=== PATIENT | male | born 1940 | race Caucasian/White ===

== ENCOUNTER → 2018-07-23 11:10 | Outpatient (CLI) | payer OTHER, MEDICARE, SELFPAY ==
[2018-07-23 12:54] LABS: Absolute Lymphocyte Count 1.74 X10^3/ul (0.83-4.51); Absolute Neutrophil Count 5.2 X10^3/uL (2.0-7.7); Basophil# 0.03 X10^3/uL; Basophil% 0.4 % (0-1); Eosinophil# 0.19 X10^3/uL; Eosinophils% 2.5 % (0-5); Hematocrit 45.1 % (40-54); Hemoglobin 14.9 g/dl (13.0-16.5); Lymphocyte # 1.74 X10^3/ul (4.0); Lymphocyte % 22.6 % (19-41); Mean Corpuscular Volume 90.7 fL (80-94); Mean Platelet Vol. 10.2 fl (6.2-12.0); Monocyte# 0.58 X10^3/uL; Monocyte% 7.5 % (0-10); Neutrophil # 5.15 X10^3/uL (2.7-7.7); Neutrophil % 66.9 % (47-70); Platelet Count 178 K/mm3 (150-450); RBC Distribution Width CV 13.5 % (11.6-14.6); RBC Distribution Width SD 44.5 fl (35.1-43.9); Red Blood Count 4.97 M/mm3 (4.6-6.2); White Blood Count 7.7 K/mm3 (4.4-11.0)
[2018-07-23 12:55] LABS: POSITIVE COUNT NO; POSITIVE DIFFERENTIAL NO; POSITIVE MORPHOLOGY NO
[2018-07-23 13:13] LABS: Vitamin D,25 Hydroxy 39.2 ng/mL (29.95-100.01)
[2018-07-23 13:15] LABS: ALB/GLOB Ratio 1.2 RATIO (0.9-2.4); AST(SGOT) 32 U/L (15-37); Alanine Aminotransfer ALT/SGPT 56 U/L (16-61); Albumin, Serum 4.1 g/dL (3.2-5.0); Alkaline Phosphatase 87 U/L (45-117); Anion Gap 7 (5-15); BUN 20 mg/dL (7-18); BUN/Creat Ratio 21.5 RATIO (10-20); Calcium,Total 9.4 mg/dL (8.5-10.1); Chloride 104 mmol/L (98-107); Creatinine, Serum 0.93 mg/dL (0.70-1.30); EST Glomerular Filtration Rate 84 mL/min (>60); Est Glom Filt Rate - Afr Amer 101 mL/min (>60); Globulin 3.4 g/dL (2.2-4.2); Glucose 89 mg/dL (74-106); Potassium 4.2 mmol/L (3.5-5.1); Protein, Total 7.5 g/dL (6.4-8.2); Sodium Level 139 mmol/L (136-145); Thyroid Stim Hormone (TSH) 1.06 uIU/mL (0.358-3.74)
== END ==
PROVIDERS: Visit Provider Family Medicine Geriatric Medicine
DX: Z00.00 Encounter for general adult medical examination without abnormal findings (principal); E55.9 Vitamin D deficiency, unspecified
CPT/HCPCS: 36415; 80053; 82306; 84443; 85025

== ENCOUNTER → 2018-10-02 16:46 | Outpatient (CLI) | payer MEDICARE, SELFPAY ==
--- NOTE | 2018-10-02 16:59 | CT_ITS ---
STUDY: CT BRAIN WITHOUT CONTRAST REASON FOR EXAM: Male, 77 years old. Dizziness on and off x2 weeks RADIATION DOSAGE (If Supplied By Facility): CTDIvol = ( 44.99 ) mGy, DLP = ( 846.73 ) mGycm TECHNIQUE: Transaxial CT imaging of the brain was performed without administration of intravenous contrast material. Individualized dose optimization techniques were used for this CT. COMPARISON: None. FINDINGS: Normal soft tissue structures. Normal calvarium. There is moderate cerebral atrophy with widening of the extra-axial spaces and ventricular dilatation. There are areas of decreased attenuation within the white matter tracts of the supratentorial brain, consistent with microvascular disease changes. Normal basal ganglia and thalami. Normal brainstem. Normal cerebellum. There is no intracranial hemorrhage. There are no findings of an acute ischemic infarction. There is mucosal thickening of multiple ethmoid air cells bilaterally. CT/Brain/Head without Contrast IMPRESSION: Chronic involutional changes of the brain. Chronic ethmoid sinusitis. Electronically Signed: Jovany Lyons MD at 17:26 EDT , Service support ,
[2018-10-02 17:28] LABS: Absolute Lymphocyte Count 1.56 X10^3/ul (0.83-4.51); Basophil# 0.03 X10^3/uL; Basophil% 0.4 % (0-1); Eosinophil# 0.11 X10^3/uL; Eosinophils% 1.4 % (0-5); Hematocrit 43.7 % (40-54); Lymphocyte # 1.56 X10^3/ul (4.0); Lymphocyte % 19.4 % (19-41); Mean Corpuscular Hgb 29.7 pg (27.0-32.0); Mean Corpuscular Volume 92.8 fL (80-94); Mean Platelet Vol. 10.2 fl (6.2-12.0); Monocyte# 0.34 X10^3/uL; Monocyte% 4.2 % (0-10); Neutrophil % 74.5 % (47-70); Platelet Count 209 K/mm3 (150-450); RBC Distribution Width CV 13.3 % (11.6-14.6); RBC Distribution Width SD 45.3 fl (35.1-43.9); Red Blood Count 4.71 M/mm3 (4.6-6.2); White Blood Count 8.1 K/mm3 (4.4-11.0)
[2018-10-02 17:31] LABS: POSITIVE COUNT NO; POSITIVE DIFFERENTIAL NO; POSITIVE MORPHOLOGY NO
[2018-10-02 17:38] LABS: Anion Gap 5 (5-15); BUN 19 mg/dL (7-18); Calcium,Total 9.7 mg/dL (8.5-10.1); Chloride 105 mmol/L (98-107); Creatinine, Serum 0.95 mg/dL (0.70-1.30); EST Glomerular Filtration Rate 81 mL/min (>60); Est Glom Filt Rate - Afr Amer 98 mL/min (>60); Glucose 104 mg/dL (74-106); Potassium 4.5 mmol/L (3.5-5.1); Sodium Level 140 mmol/L (136-145)
== END ==
PROVIDERS: Family Provider Family Medicine Geriatric Medicine; PCP Family Medicine Geriatric Medicine; Referring Provider Family Medicine Geriatric Medicine; Visit Provider Family Medicine Geriatric Medicine
DX: R42 Dizziness and giddiness (principal)
CPT/HCPCS: 36415; 70450; 80048; 85025; 87086

== ENCOUNTER → 2019-02-03 | Outpatient (CLI) | payer MEDICARE, SELFPAY ==
[2016-12-31 20:47] VITALS: BMI 34.2
[2019-02-03 12:48] LABS: Absolute Neutrophil Count 4.1 X10^3/uL (2.0-7.7); Basophil# 0.04 X10^3/uL; Basophil% 0.7 % (0-1); Eosinophil# 0.13 X10^3/uL; Eosinophils% 2.2 % (0-5); Hematocrit 44.7 % (40-54); Hemoglobin 15.1 g/dL (13.0-16.5); Lymphocyte % 21.7 % (19-41); Mean Corp Hgb Conc 33.8 g/dL (32-36); Mean Corpuscular Hgb 31.3 pg (27.0-32.0); Mean Corpuscular Volume 92.5 fL (80-94); Mean Platelet Vol. 10.6 fl (6.2-12.0); Monocyte# 0.41 X10^3/uL; Monocyte% 6.8 % (0-10); NRBC Flagged by Analyzer 0 % (0-5); Neutrophil # 4.08 X10^3/uL (2.7-7.7); Neutrophil % 68.1 % (47-70); Platelet Count 169 K/mm3 (150-450); RBC Distribution Width CV 13.2 % (11.6-14.6); Red Blood Count 4.83 M/mm3 (4.6-6.2)
[2019-02-03 13:09] LABS: Vitamin D,25 Hydroxy 46.4 ng/mL (29.95-100.01)
[2019-02-03 13:27] LABS: ALB/GLOB Ratio 1.2 RATIO (0.9-2.4); AST(SGOT) 76 U/L (15-37); Alanine Aminotransfer ALT/SGPT 81 U/L (16-61); Albumin, Serum 3.9 g/dL (3.2-5.0); Alkaline Phosphatase 68 U/L (45-117); Anion Gap 6 (5-15); BUN 22 mg/dL (7-18); BUN/Creat Ratio 24.4 RATIO (10-20); Calcium,Total 9.4 mg/dL (8.5-10.1); Chloride 105 mmol/L (98-107); EST Glomerular Filtration Rate 86 mL/min (>60); Est Glom Filt Rate - Afr Amer 105 mL/min (>60); Globulin 3.2 g/dL (2.2-4.2); Glucose 100 mg/dL (74-106); Potassium 4.1 mmol/L (3.5-5.1); Protein, Total 7.1 g/dL (6.4-8.2); Sodium Level 140 mmol/L (136-145); Thyroid Stim Hormone (TSH) 0.73 uIU/mL (0.358-3.74)
== END | disposition home or self-care (01) ==
LOC: POLAB3 09:10
PROVIDERS: Family Provider Family Medicine Geriatric Medicine; PCP Family Medicine Geriatric Medicine; Visit Provider Family Medicine Geriatric Medicine
DX: E55.9 Vitamin D deficiency, unspecified (principal); R53.83 Other fatigue
CPT/HCPCS: 36415; 80053; 82306; 84443; 85025

== ENCOUNTER → 2019-07-28 | Outpatient (CLI) | payer MEDICARE, SELFPAY ==
[2019-07-28 14:04] LABS: Absolute Lymphocyte Count 1.69 X10^3/uL (0.83-4.51); Absolute Neutrophil Count 3.6 X10^3/uL (2.0-7.7); Basophil# 0.05 X10^3/uL; Basophil% 0.8 % (0-1); Eosinophil# 0.22 X10^3/uL; Eosinophils% 3.6 % (0-5); Hematocrit 44.6 % (40-54); Hemoglobin 14.6 g/dL (13.0-16.5); Lymphocyte # 1.69 X10^3/ul (4.0); Lymphocyte % 27.5 % (19-41); Mean Corp Hgb Conc 32.7 g/dL (32-36); Mean Corpuscular Hgb 30.4 pg (27.0-32.0); Mean Corpuscular Volume 92.9 fL (80-94); Mean Platelet Vol. 10.8 fl (6.2-12.0); Monocyte# 0.57 X10^3/uL; Monocyte% 9.3 % (0-10); NRBC Flagged by Analyzer 0 % (0-5); Neutrophil # 3.59 X10^3/uL (2.7-7.7); Neutrophil % 58.5 % (47-70); Platelet Count 178 K/mm3 (150-450); RBC Distribution Width CV 12.9 % (11.6-14.6); RBC Distribution Width SD 44.3 fl (35.1-43.9); White Blood Count 6.1 K/mm3 (4.4-11.0)
[2019-07-28 14:27] LABS: Vitamin D,25 Hydroxy 35.1 ng/mL (29.95-100.01)
[2019-07-28 14:30] LABS: ALB/GLOB Ratio 1.1 RATIO (0.9-2.4); AST(SGOT) 68 U/L (15-37); Alanine Aminotransfer ALT/SGPT 98 U/L (16-61); Albumin, Serum 3.8 g/dL (3.2-5.0); Alkaline Phosphatase 78 U/L (45-117); Anion Gap 2 (5-15); BUN 22 mg/dL (7-18); BUN/Creat Ratio 21.4 RATIO (10-20); Chloride 107 mmol/L (98-107); Creatinine, Serum 1.03 mg/dL (0.70-1.30); EST Glomerular Filtration Rate 74 mL/min (>60); Est Glom Filt Rate - Afr Amer 89 mL/min (>60); Globulin 3.5 g/dL (2.2-4.2); Glucose 92 mg/dL (74-106); Potassium 4.4 mmol/L (3.5-5.1); Protein, Total 7.3 g/dL (6.4-8.2); Sodium Level 139 mmol/L (136-145); Thyroid Stim Hormone (TSH) 1.84 uIU/mL (0.358-3.74)
== END | disposition home or self-care (01) ==
PROVIDERS: Family Provider Family Medicine Geriatric Medicine; PCP Family Medicine Geriatric Medicine; Visit Provider Family Medicine Geriatric Medicine
DX: E55.9 Vitamin D deficiency, unspecified (principal); R53.83 Other fatigue
CPT/HCPCS: 36415; 80053; 82306; 84443; 85025

== ENCOUNTER → 2019-08-12 14:06 | Outpatient (CLI) | payer MEDICARE, SELFPAY ==
[2016-12-31 20:47] VITALS: BMI 34.2
[2019-08-12 18:12] LABS: ALB/GLOB Ratio 0.9 RATIO (0.9-2.4); AST(SGOT) 30 U/L (15-37); Alanine Aminotransfer ALT/SGPT 43 U/L (16-61); Albumin, Serum 3.6 g/dL (3.2-5.0); Alkaline Phosphatase 77 U/L (45-117); Anion Gap 4 (5-15); BUN 17 mg/dL (7-18); BUN/Creat Ratio 15.5 RATIO (10-20); Calcium,Total 9.4 mg/dL (8.5-10.1); Chloride 105 mmol/L (98-107); EST Glomerular Filtration Rate 69 mL/min (>60); Est Glom Filt Rate - Afr Amer 83 mL/min (>60); Globulin 3.8 g/dL (2.2-4.2); Glucose 148 mg/dL (74-106); Potassium 4.1 mmol/L (3.5-5.1); Protein, Total 7.4 g/dL (6.4-8.2); Sodium Level 138 mmol/L (136-145)
== END ==
PROVIDERS: Family Provider Family Medicine Geriatric Medicine; PCP Family Medicine Geriatric Medicine; Visit Provider Family Medicine Geriatric Medicine
DX: K76.9 Liver disease, unspecified (principal)
CPT/HCPCS: 36415; 80053

== ENCOUNTER → 2019-08-27 11:08 | Outpatient (CLI) | payer MEDICARE, SELFPAY ==
[2016-12-31 20:47] VITALS: BMI 34.2
[2019-08-27 12:37] LABS: AST(SGOT) 56 U/L (15-37); Alanine Aminotransfer ALT/SGPT 99 U/L (16-61); Albumin, Serum 3.6 g/dL (3.2-5.0); Alkaline Phosphatase 84 U/L (45-117); Anion Gap 2 (5-15); BUN 24 mg/dL (7-18); BUN/Creat Ratio 24.4 RATIO (10-20); Chloride 107 mmol/L (98-107); Creatinine, Serum 0.98 mg/dL (0.70-1.30); EST Glomerular Filtration Rate 78 mL/min (>60); Est Glom Filt Rate - Afr Amer 94 mL/min (>60); Globulin 3.7 g/dL (2.2-4.2); Glucose 97 mg/dL (74-106); Potassium 4.4 mmol/L (3.5-5.1); Protein, Total 7.3 g/dL (6.4-8.2); Sodium Level 140 mmol/L (136-145)
== END ==
PROVIDERS: PCP Family Medicine Geriatric Medicine; Visit Provider Family Medicine Geriatric Medicine
DX: K76.9 Liver disease, unspecified (principal)
CPT/HCPCS: 36415; 80053

== ENCOUNTER → 2019-10-01 13:55 | Outpatient (CLI) | payer MEDICARE, SELFPAY ==
[2016-12-31 20:47] VITALS: BMI 34.2
[2019-10-01 16:54] LABS: ALB/GLOB Ratio 1.3 RATIO (0.9-2.4); AST(SGOT) 47 U/L (15-37); Alanine Aminotransfer ALT/SGPT 61 U/L (16-61); Albumin, Serum 3.9 g/dL (3.2-5.0); Alkaline Phosphatase 72 U/L (45-117); Anion Gap 7 (5-15); BUN 18 mg/dL (7-18); BUN/Creat Ratio 18.6 RATIO (10-20); Calcium,Total 9.5 mg/dL (8.5-10.1); Chloride 106 mmol/L (98-107); Creatinine, Serum 0.97 mg/dL (0.70-1.30); EST Glomerular Filtration Rate 79 mL/min (>60); Est Glom Filt Rate - Afr Amer 96 mL/min (>60); Globulin 3.1 g/dL (2.2-4.2); Glucose 109 mg/dL (74-106); Potassium 3.6 mmol/L (3.5-5.1); Sodium Level 140 mmol/L (136-145)
== END ==
PROVIDERS: PCP Family Medicine Geriatric Medicine; Visit Provider Family Medicine Geriatric Medicine
DX: R74.8 Abnormal levels of other serum enzymes (principal)
CPT/HCPCS: 36415; 80053

== ENCOUNTER → 2019-10-12 10:30 | Outpatient (CLI) | payer MEDICARE, SELFPAY ==
[2016-12-31 20:47] VITALS: BMI 34.2
[2019-10-12 15:05] LABS: ALB/GLOB Ratio 1.2 RATIO (0.9-2.4); AST(SGOT) 51 U/L (15-37); Alanine Aminotransfer ALT/SGPT 84 U/L (16-61); Albumin, Serum 3.9 g/dL (3.2-5.0); Alkaline Phosphatase 93 U/L (45-117); Anion Gap 3 (5-15); BUN 14 mg/dL (7-18); BUN/Creat Ratio 15.5 RATIO (10-20); Calcium,Total 9.5 mg/dL (8.5-10.1); Chloride 106 mmol/L (98-107); EST Glomerular Filtration Rate 86 mL/min (>60); Est Glom Filt Rate - Afr Amer 104 mL/min (>60); Globulin 3.2 g/dL (2.2-4.2); Glucose 134 mg/dL (74-106); Potassium 4.2 mmol/L (3.5-5.1); Protein, Total 7.1 g/dL (6.4-8.2); Sodium Level 140 mmol/L (136-145)
== END ==
PROVIDERS: PCP Family Medicine Geriatric Medicine; Visit Provider Family Medicine Geriatric Medicine
DX: R74.8 Abnormal levels of other serum enzymes (principal)
CPT/HCPCS: 36415; 80053

== ENCOUNTER → 2019-10-21 08:07 | Outpatient (CLI) | payer MEDICARE, SELFPAY ==
--- NOTE | 2019-10-21 08:26 | US_ITS ---
STUDY: ABDOMINAL ULTRASOUND - RIGHT UPPER QUADRANT REASON FOR VISIT: Male, 78 years old ABN LIVER ENZ TECHNIQUE: Ultrasound evaluation of the right upper quadrant was performed with real-time and static landry-scale imaging. TECHNICAL QUALITY: Limited. Examination limited by bowel gas. COMPARISON: None. FINDINGS: Liver: The liver measures 16.8 cm. There is increased echogenicity consistent with fatty infiltration. The bile ducts are within normal limits. There is hepatic color flow. The direction of portal flow is hepatopetal. There is no demonstrated mass lesion. Gallbladder: Normal distended gallbladder. The gallbladder wall measures 2.7 mm. There is a negative sonographic Aleman''s sign. There is no pericholecystic fluid. There are no gallstones. Focal ringdown artifact is seen along the anterior wall of the gallbladder. This may represent a focus of adenomyomatosis. Common Bile Duct (C.B.D.): The common bile duct measures 3.2 mm. Pancreas: Normal size of the head, body and tail of the pancreas. There is increased echogenicity of the pancreas. There is no demonstrated pancreatic mass or cyst. Right Kidney: Normal size of the right kidney. The right kidney measures 10.5 cm x 5.4 cm x 4.9 cm. Normal renal cortex. The right cortex measures 2.1 cm. There is no demonstrated renal mass or cyst. There is no right hydronephrosis. US/Liver IMPRESSION: Fatty infiltration of the liver. Possible focus of adenomyomatosis along the anterior wall of the gallbladder. Electronically Signed: Reji Alanis, at 12:16 EDT , Service support ,
== END ==
PROVIDERS: PCP Family Medicine Geriatric Medicine; Referring Provider Family Medicine Geriatric Medicine; Visit Provider Family Medicine Geriatric Medicine
DX: R74.8 Abnormal levels of other serum enzymes (principal)
CPT/HCPCS: 76705

== ENCOUNTER → 2020-02-03 09:02 | Outpatient (CLI) | payer MEDICARE, SELFPAY ==
[2016-12-31 20:47] VITALS: BMI 34.2
[2020-02-03 12:07] LABS: Absolute Lymphocyte Count 1.36 X10^3/uL (0.83-4.51); Absolute Neutrophil Count 3.6 X10^3/uL (2.0-7.7); Basophil# 0.04 X10^3/uL; Basophil% 0.7 % (0-1); Eosinophil# 0.13 X10^3/uL; Eosinophils% 2.3 % (0-5); Hematocrit 44.5 % (40-54); Hemoglobin 14.6 g/dL (13.0-16.5); Lymphocyte # 1.36 X10^3/ul (4.0); Lymphocyte % 23.9 % (19-41); Mean Corp Hgb Conc 32.8 g/dL (32-36); Mean Corpuscular Hgb 31.3 pg (27.0-32.0); Mean Corpuscular Volume 95.3 fL (80-94); Mean Platelet Vol. 11.1 fl (6.2-12.0); Monocyte% 8.8 % (0-10); NRBC Flagged by Analyzer 0 % (0-5); Neutrophil # 3.64 X10^3/uL (2.7-7.7); Neutrophil % 64.1 % (47-70); Platelet Count 181 K/mm3 (150-450); RBC Distribution Width SD 44.8 fl (35.1-43.9); Red Blood Count 4.67 M/mm3 (4.6-6.2); White Blood Count 5.7 K/mm3 (4.4-11.0)
[2020-02-03 12:20] LABS: Vitamin D,25 Hydroxy 57.3 ng/mL
[2020-02-03 12:37] LABS: ALB/GLOB Ratio 1.1 RATIO (0.9-2.4); AST(SGOT) 80 U/L (15-37); Alanine Aminotransfer ALT/SGPT 119 U/L (16-61); Albumin, Serum 3.7 g/dL (3.2-5.0); Alkaline Phosphatase 78 U/L (45-117); Anion Gap 4 (5-15); BUN 19 mg/dL (7-18); BUN/Creat Ratio 21.5 RATIO (10-20); Calcium,Total 9.4 mg/dL (8.5-10.1); Chloride 104 mmol/L (98-107); Creatinine, Serum 0.88 mg/dL (0.70-1.30); EST Glomerular Filtration Rate 88 mL/min (>60); Est Glom Filt Rate - Afr Amer 107 mL/min (>60); Globulin 3.5 g/dL (2.2-4.2); Glucose 108 mg/dL (74-106); Potassium 4.9 mmol/L (3.5-5.1); Protein, Total 7.2 g/dL (6.4-8.2); Sodium Level 138 mmol/L (136-145); Thyroid Stim Hormone (TSH) 0.89 uIU/mL (0.358-3.74)
== END ==
PROVIDERS: PCP Family Medicine Geriatric Medicine; Visit Provider Family Medicine Geriatric Medicine
DX: E55.9 Vitamin D deficiency, unspecified (principal); R53.83 Other fatigue
CPT/HCPCS: 36415; 80053; 82306; 84443; 85025

== ENCOUNTER → 2020-06-28 07:41 | Outpatient (CLI) | payer MEDICARE, SELFPAY ==
--- NOTE | 2020-06-28 07:43 | CT_ITS ---
STUDY: CT MAXILLOFACIAL SINUSES REASON FOR EXAM: Male, 79 years old. Sinusitis, left maxillary pressure, drainage, frequent infections. No prior surgery. [employer] navigation protocol. RADIATION DOSAGE (If Supplied By Facility): CTDIvol = ( 33.06 ) mGy, DLP = ( 842.11 ) mGycm TECHNIQUE: The patient was scanned in a multi detector CT scanner. High resolution axial imaging was performed without the administration of intravenous contrast material. Sagittal and coronal images were reconstructed. Individualized dose optimization techniques were used for this CT. COMPARISON: None. FINDINGS: FRONTAL SINUSES: Normal aeration, without mucosal inflammatory disease. ETHMOIDAL SINUSES: Mild degree of mucosal thickening of the ethmoid sinuses bilaterally. Slightly worse on the left side. MAXILLARY SINUSES: Normal aeration, without mucosal inflammatory disease. SPHENOIDAL SINUSES: Normal aeration, without mucosal inflammatory disease. There is patency of the bilateral maxillary infundibuli with normal uncinate processes, ethmoid bullae, and hiatus semilunaris. Normal bilateral middle turbinates. Normal bilateral inferior turbinates. Normal midline nasal septum. There is patency of the bilateral nasal airways. The visualized osseous structures are normal. The visualized bilateral orbital contents are normal. CT/Sinus/Facial Bone IMPRESSION: Mild degree of mucosal thickening of the ethmoid sinuses bilaterally slightly worse on the left side. Electronically Signed: Reji Alanis, at 8:24 EST , Service support ,
== END ==
PROVIDERS: PCP Family Medicine Geriatric Medicine; Referring Provider Otolaryngology; Visit Provider Otolaryngology
DX: J32.9 Chronic sinusitis, unspecified (principal)
CPT/HCPCS: 70486

== ENCOUNTER → 2020-07-07 16:55 | Outpatient (CLI) | payer MEDICARE, SELFPAY ==
[2016-12-31 20:47] VITALS: BMI 34.2
[2020-07-07 17:29] LABS: Absolute Lymphocyte Count 1.56 X10^3/uL (0.83-4.51); Absolute Neutrophil Count 4.1 X10^3/uL (2.0-7.7); Basophil# 0.04 X10^3/uL; Basophil% 0.6 % (0-1); Eosinophil# 0.17 X10^3/uL; Eosinophils% 2.6 % (0-5); Hematocrit 43.9 % (40-54); Hemoglobin 14.6 g/dL (13.0-16.5); Lymphocyte # 1.56 X10^3/ul (4.0); Lymphocyte % 24.1 % (19-41); Mean Corp Hgb Conc 33.3 g/dL (32-36); Mean Corpuscular Hgb 30.7 pg (27.0-32.0); Mean Corpuscular Volume 92.2 fL (80-94); Mean Platelet Vol. 10.3 fl (6.2-12.0); Monocyte# 0.58 X10^3/uL; NRBC Flagged by Analyzer 0 % (0-5); Neutrophil # 4.09 X10^3/uL (2.7-7.7); Neutrophil % 63.2 % (47-70); Platelet Count 192 K/mm3 (150-450); RBC Distribution Width CV 12.7 % (11.6-14.6); RBC Distribution Width SD 43.2 fl (35.1-43.9); Red Blood Count 4.76 M/mm3 (4.6-6.2); White Blood Count 6.5 K/mm3 (4.4-11.0)
[2020-07-07 17:31] LABS: Prothrombin Time (Protime)PT. 12.4 SECONDS (11.7-14.9)
[2020-07-07 17:59] LABS: Anion Gap 5 (5-15); BUN 23 mg/dL (7-18); BUN/Creat Ratio 22.1 RATIO (10-20); Calcium,Total 9.5 mg/dL (8.5-10.1); Chloride 103 mmol/L (98-107); Creatinine, Serum 1.04 mg/dL (0.70-1.30); EST Glomerular Filtration Rate 73 mL/min (>60); Est Glom Filt Rate - Afr Amer 88 mL/min (>60); Glucose 109 mg/dL (74-106); Potassium 4.1 mmol/L (3.5-5.1); Sodium Level 138 mmol/L (136-145)
[2020-07-07 19:40] LABS: M R Staph aureus DNA By PCR Negative (Negative); Probe Check PASS; Specimen Processing Control PASS
[2020-07-12 11:21] LABS: Magnesium 2.3 mg/dL (1.6-2.6)
== END ==
PROVIDERS: PCP Family Medicine Geriatric Medicine; Visit Provider Family Medicine Geriatric Medicine
DX: Z01.810 Encounter for preprocedural cardiovascular examination (principal)
CPT/HCPCS: 36415; 80048; 83735; 85025; 85610; 87641

== ENCOUNTER → 2020-07-08 15:12 | Outpatient (CLI) | payer MEDICARE, SELFPAY ==
[2016-12-31 20:47] VITALS: BMI 34.2
== END ==
PROVIDERS: PCP Family Medicine Geriatric Medicine; Visit Provider Otolaryngology
DX: K13.79 Other lesions of oral mucosa (principal)
CPT/HCPCS: 87070; 87186

== ENCOUNTER → 2020-08-03 09:42 | Outpatient (CLI) | payer MEDICARE, SELFPAY ==
[2016-12-31 20:47] VITALS: BMI 34.2
[2020-08-03 12:14] LABS: Absolute Lymphocyte Count 2.01 X10^3/uL (0.83-4.51); Absolute Neutrophil Count 6.1 X10^3/uL (2.0-7.7); Basophil# 0.04 X10^3/uL; Basophil% 0.4 % (0-1); Eosinophil# 0.18 X10^3/uL; Hematocrit 48.5 % (40-54); Hemoglobin 15.5 g/dL (13.0-16.5); Lymphocyte # 2.01 X10^3/ul (4.0); Lymphocyte % 22.1 % (19-41); Mean Corpuscular Hgb 29.5 pg (27.0-32.0); Mean Corpuscular Volume 92.2 fL (80-94); Mean Platelet Vol. 10.6 fl (6.2-12.0); Monocyte# 0.69 X10^3/uL; Monocyte% 7.6 % (0-10); NRBC Flagged by Analyzer 0 % (0-5); Neutrophil # 6.12 X10^3/uL (2.7-7.7); Neutrophil % 67.5 % (47-70); Platelet Count 255 K/mm3 (150-450); RBC Distribution Width CV 12.7 % (11.6-14.6); RBC Distribution Width SD 43.4 fl (35.1-43.9); Red Blood Count 5.26 M/mm3 (4.6-6.2); White Blood Count 9.1 K/mm3 (4.4-11.0)
[2020-08-03 12:32] LABS: ALB/GLOB Ratio 1.1 RATIO (0.9-2.4); AST(SGOT) 143 U/L (15-37); Alanine Aminotransfer ALT/SGPT 217 U/L (16-61); Albumin, Serum 4.1 g/dL (3.2-5.0); Alkaline Phosphatase 103 U/L (45-117); Anion Gap 4 (5-15); BUN 18 mg/dL (7-18); BUN/Creat Ratio 19.4 RATIO (10-20); Calcium,Total 10.1 mg/dL (8.5-10.1); Chloride 101 mmol/L (98-107); Creatinine, Serum 0.93 mg/dL (0.70-1.30); EST Glomerular Filtration Rate 83 mL/min (>60); Est Glom Filt Rate - Afr Amer 100 mL/min (>60); Globulin 3.7 g/dL (2.2-4.2); Glucose 113 mg/dL (74-106); Potassium 4.1 mmol/L (3.5-5.1); Protein, Total 7.8 g/dL (6.4-8.2); Sodium Level 136 mmol/L (136-145); Thyroid Stim Hormone (TSH) 1.18 uIU/mL (0.358-3.74)
[2020-08-03 12:44] LABS: Vitamin D,25 Hydroxy 53.5 ng/mL
== END ==
LOC: POLAB3 09:43
PROVIDERS: PCP Family Medicine Geriatric Medicine; Visit Provider Family Medicine Geriatric Medicine
DX: R53.83 Other fatigue (principal); E55.9 Vitamin D deficiency, unspecified
CPT/HCPCS: 36415; 80053; 82306; 84443; 85025

== ENCOUNTER 2020-08-08 12:22 | Observation (INO) | payer MEDICARE, SELFPAY ==
[2016-12-31 20:47] VITALS: BMI 34.2
--- NOTE | 2020-07-25 10:45 | RAD_ITS ---
STUDY: X-RAY CHEST REASON FOR EXAM: Male, 79 years old. Pre op, recent sinus infection TECHNIQUE: PA and lateral views of the chest. COMPARISON: None. FINDINGS: The lungs are clear and expanded. There is no demonstrated pleural abnormality. Normal size heart. Normal mediastinum and steph. Normal visualized pulmonary arteries. Normal visualized aortic arch and descending thoracic aorta. Normal visualized thoracic spine. Normal visualized ribs, clavicles, and shoulders. There is no demonstrated abnormality of the visualized soft tissue structures of the upper abdomen. RAD/Chest PA and Lateral IMPRESSION: Normal x-ray examination of the chest. Electronically Signed: Patrick Reis MD at 11:02 EST Tel , Service support ,
[2020-07-25 10:54] LABS: Hematocrit 45.2 % (40-54); Hemoglobin 14.5 g/dL (13.0-16.5); Mean Corp Hgb Conc 32.1 g/dL (32-36); Mean Corpuscular Volume 93.6 fL (80-94); Platelet Count 196 K/mm3 (150-450); RBC Distribution Width CV 12.8 % (11.6-14.6); Red Blood Count 4.83 M/mm3 (4.6-6.2); White Blood Count 6.6 K/mm3 (4.4-11.0)
[2020-07-25 11:26] LABS: Anion Gap 3 (5-15); BUN 24 mg/dL (7-18); BUN/Creat Ratio 23.8 RATIO (10-20); Calcium,Total 9.7 mg/dL (8.5-10.1); Chloride 106 mmol/L (98-107); Creatinine, Serum 1.01 mg/dL (0.70-1.30); EST Glomerular Filtration Rate 75 mL/min (>60); Est Glom Filt Rate - Afr Amer 91 mL/min (>60); Glucose 78 mg/dL (74-106); Potassium 4.4 mmol/L (3.5-5.1); Sodium Level 141 mmol/L (136-145)
[2020-08-08] VITALS (13 sets, daily range): BP systolic 109–146; BP diastolic 53–81; PULSE 58–112; RESP 12–18; TEMP 35.7–36.9; O2SAT 95–100; BMI 33.2; BMI 34.7
--- NOTE | 2020-08-08 | HIP_PTH ---
PATIENT: CB SPARKS II LOC: MS3 U#:[id number] AGE/SX: 79/M ROOM: [facility] [place] RE08/08/[address]: Dr. Fredis Wallace MD : 1940 BED: 1 DIS: 08/09/2020 SPEC #: [id number] RECD: 08/08/20 13:15 STATUS: BRYCE REQ #: [id number] JIGNESH: 08/08/20 00:[address]: Fredis Wallace DEPT: SURGICAL PATHOLOGY RECD BY: Emery Jiménez ENTERED: 08/09/20 07:14 SP TYPE: TOTAL HIP OTHR DR: MD Angely Aaron Chi, PA Tissues: Hip, NOS Procedures: Decalcification bone/plaque Surgery Specimen Level IV HEADER OPERATION: ERAS, total hip replacement PRE-OP DIAGNOSIS: Osteoarthritis TISSUE SUBMITTED: Left hip bone MICROSCOPIC DIAGNOSIS Left hip bone, total hip replacement/resection: Femoral head with degenerative osteoarthritic changes. Fragment of dense fibroconnective tissue with reactive changes and focal changes consistent with pseudogout. SHAUN:[email or web address] 08/12/2020 MICROSCOPIC DESCRIPTION Slides are reviewed. GROSS DESCRIPTION Received is one container labeled with the patient's name and designated bone and soft tissue hip, left. The specimen consists of a brown femoral head with portion of femoral neck. The femoral head measures 4.5 x 4.5 x 4 cm and the femoral neck measures up to 1.5 cm in length. The articular surface displays prominent osteophyte formation, eburnation and bone erosion. Also present in the specimen container are multiple irregular fragments of bone reamings and pink-yellow soft tissue measuring in aggregate 8 x 7.5 x 2 cm. Banking Services Officer sections are submitted in two cassettes as follows: 1 - soft tissue, 2 - bone after decalcification. / SHAUN:[email or web address] 08/09/20 TC:5 CPT: 59005, 83889
[2020-08-08] MEDS: Lactated Ringers 1,000 ML 100 ML IV (08:45)
[2020-08-08] MEDS: Celecoxib 200 MG Capsule 400 MG PO (09:09)
[2020-08-08] MEDS: Gabapentin 600 MG Tablet PO (09:09)
[2020-08-08] MEDS: Scopolamine 1mg/72hr Patch 1 PATCH TD (09:09)
[2020-08-08] MEDS: Acetaminophen 325 MG Tablet 975 MG PO (09:10)
[2020-08-08] MEDS: dexAMETHasone 10 MG/ML Vial IV (09:38)
[2020-08-08] MEDS: Cefazolin 2 GM in 0.9% Normal Saline 100 ML IV (10:00)
[2020-08-08 10:01] LABS: Bedside Glucose 109 mg/dL (70-110)
--- NOTE | 2020-08-08 12:23 | RAD_ITS ---
STUDY: X-RAY - PELVIS AND LEFT HIP REASON FOR EXAM: Male, 79 years old. POST OP HIP TECHNIQUE: 3 views of the pelvis and hip. COMPARISON: None. FINDINGS: The patient is status post left total hip replacement. There is good alignment. Postoperative soft tissue changes. RAD/Hip Min 2 Views (Portable) IMPRESSION: Status post left hip replacement. There is good alignment. Postoperative soft tissue changes. Electronically Signed: Reji Alanis MD at 14:01 EST , Service support ,
--- NOTE | 2020-08-08 12:32 | PRO.PCM_ITS ---
Procedure Report Date of Procedure: 08/08/20 Preoperative diagnosis: Left hip primary osteoarthritis Postoperative diagnosis: Same Operation: Left total hip replacement surgery Surgeon: Dr. Fredis Wallace MD Regional Safety Manager: Angely Wadsworth PA-C Second assistant distribution manager Rajiv MARIE Anesthesia: Spinal/general Anesthesiologist Dr. Pardo EBL: 300 Special medications: IV [Ancef 2 gm], IV Tranexamic acid Indications for surgery : Patient is a 79-year-old with a long-standing history of severe hip pain that has failed adequate nonoperative treatment. Due to persistent pain and disability, they decided to proceed with hip replacement surgery. Appropriate informed consent was obtained and signed. Appropriate medical workup was performed preoperatively and patient was deemed safe for surgery by the anesthesia department as well. medicine assistant, physician assistant distribution manager, was utilized throughout the entire procedure. They were vital in helping with patient positioning, holding of retractors, exposing the tissues adequately for safe completion of the procedure including cutting of the bone, helping immigration judge appropriate alignment and sizing of the components, implantation of the components, as well as wound closure, bandage application, and safe patient transfer. Without office assistant receptionist, physician assistant distribution manager, surgical time would have been significantly increased, and surgical outcome would have been less optimal. Operative findings: Patient had severe arthritis of the involved hip joint. They underwent a small posterior approach to the hip. We utilized a size 6 cemented Accolade stem] 127 degree neck angle, a press fit acetabular component size 56 titanium cluster, MDM liner was +8 neck length 28 mm inner diameter head with a 56 mm outer. This reproduced their anatomy nicely. Clinically good leg lengths were noted. Good hip stability through range of motion with no undue pistoning. Standard wound closure in layers, followed by zahira, followed by Mepilex dressing Details of procedure: Patient was taken to the operating room and transferred to the operating table. Given appropriate anesthetic agent by that department. Patient was then rolled into a lateral decubitus position with the involved painful hip up in the air. Appropriate timeouts had been performed. Hip had been appropriately marked with my initials. Padded anterior and posterior position was utilized. Axillary roll placed. STUART hose and SCDs on the nonoperative limb utilized throughout the procedure. Tranexamic acid and IV antibiotics given preoperatively. Operative lower extremity was prepped padded and draped in the usual orthopedic sterile fashion for the procedure. I injected the pain relieving solution in the standard sterile technique of the soft tissues of the hip carefully. Incision was made curving over the tip of the greater trochanter posteriorly. Full thickness skin flaps are raised down o n the fascia russell. Fascia russell was opened in length with our incision. Charnley self-retaining hip retractor was carefully placed by the surgeon. Leg was appropriately rotated and held by the assistant distribution manager. Retractor was used to lift the abductors anteriorly to visualize the piriformis tendon and external rotators. Area was infiltrated with pain relieving cocktail. Piriformis tendon and external rotators released off the greater trochanter with the Bovie. Tagging suture was placed in each of these separately. We then split the tissue superior to the piriformis tendon through capsule and onto the pelvis. Acetabular labrum was also divided. With traction and manipulation arthritic femoral head was dislocated from the acetabulum. Retractors were carefully placed around the femoral neck. Cutting guide was utilized to map out the proposed cut approximately 1 fingerbreadth above the lesser trochanter. This femoral neck cut was carried out with a saw. Arthritic femoral head removed and measured and inspected. Inferior acetabular retractor was placed by the surgeon, held by the assistant distribution manager. Bone hook utilized to pull the proximal femur anteriorly. Labrum removed from about the acetabulum a long knife. Tissue removed from the depth of the acetabulum with the Bovie. Arthritic acetabulum was noted. We began reaming with the appropriate sized reamer based on the measurement of the femoral head. Reaming was done with 45? of abduction, 20? of anteversion, reproducing there anatomy. Reaming was done incrementally up to the appropriate size creating a smooth cylindrical acetabulum and was done down to healthy bone. Trial acetabular component 1 millimeters smaller than the largest reamer was utilized with the outrigger device. Appropriate abduction and anteversion confirmed as well as size and position of cup. We irrigated with bulb syringe saline. Appropriate acetabular opponent was opened and hammered into position with the outrigger device, with 45? of abduction and 20 degrees of anteversion. We could see through the hole in the cup it was adequately down onto the bone in the pelvis. Good stability was noted. Trial liner with a 10? hicks was appropriately positioned. Any anterior and/ or posterior osteophytes removed with an osteotome, rondure. Acetabular retractors removed. A proximal femoral elevator utilized. Held by the assistant distribution manager. We used a sharp awl entering down inside the bone of the proximal femur. Utilized the cameron cutting osteotome in the proximal lateral greater trochanteric region. The fragment removed. Broaching was then done from the smallest broach, upto the appropriate size. Good stability was confirmed. We then trialed the construct with a standard neck length and appropriate sized femoral head on 127? angle neck. We were happy with the construct. Good stability to flexion, rotation by the assistant distribution manager. At this point trials removed. Actual MDM metal and polyethylene components hammered onto the femoral neck. Final reduction was carried out We now exposed the proximal femur with appropriate retractors in place, held by the assistant distribution manager, actual femoral stem was checked, 2 full batches of bone cement had been mixed. We had thoroughly cleaned and dried the canal and placed a cement restrictor prior to this. The actual stem was cemented in place hammered in position after pressurizing the cement. Excess bone cement was removed. Construct was held still while the cement hardened. We now again trialed appropriate neck length decided upon. It was then opened. Now impacted the appropriate sized femoral head, neck construct onto the clean dried trunion. Was noted to be stable. Hip was inspected, and joint was reduced for a final time. Good hip stability and leg lengths noted. This was then irrigated with saline and cleaned. Next the remainder of the pain relieving solution was injected carefully throughout the soft tissues of the hip joint. Closure was carried out with a combination of #1 Vicryl, running #2 strata fix in the fascia russell, followed by mid layer #1 Vicryl with #1 strata fix running. Next running 0 strata fix, followed by skin zahira, Xeroform, Mepilex dressing. We placed STUART hose and SCD on the operative leg. Patient awoken from the anesthetic and transferred back to room bed in recovery room in satisfactory condition. Patient will be admitted for pain management, PT, IV antibiotics, medication for DVT prevention. Hospitalist consulted for postoperative medical management. Hopeful discharge to home in 1-3 days Ancef 2 g IV was given preoperatively. STUART hose and SCDs utilized throughout. Xarelto 10 mg daily will be utilized for 1 week followed by aspirin 81 mg twice a day for another 3 weeks This note was generated with [email or web address] software. It may contain incorrect words, spelling, and punctuation that were not noted in checking the note before signing.
[2020-08-08] MEDS: Cefazolin 1 GM/50 ML BAG IV ×2 (16:35→21:49)
[2020-08-08] MEDS: Acetaminophen 500 MG Tablet 1000 MG PO ×2 (16:35→21:48)
[2020-08-08] MEDS: Senna/Docusate Sodium 1 Tablet 2 TABLET PO (21:48)
[2020-08-08] MEDS: Lactated Ringers 1,000 ML 125 ML IV (21:49)
[2020-08-09 03:12] VITALS: BP 130/54; PULSE 92; RESP 18; TEMP 37.1; O2SAT 98
[2020-08-09] MEDS: Cefazolin 1 GM/50 ML BAG IV (03:32)
[2020-08-09] MEDS: Rivaroxaban 10 MG Tablet PO (06:46)
[2020-08-09] MEDS: Acetaminophen 500 MG Tablet 1000 MG PO (06:46)
[2020-08-09] MEDS: Lactated Ringers 1,000 ML 125 ML IV (06:47)
[2020-08-09 07:09] LABS: Hematocrit 39.6 % (40-54); Hemoglobin 13.6 g/dL (13.0-16.5); Mean Corp Hgb Conc 34.3 g/dL (32-36); Mean Corpuscular Hgb 31.3 pg (27.0-32.0); Mean Platelet Vol. 10.1 fl (6.2-12.0); Platelet Count 198 K/mm3 (150-450); RBC Distribution Width CV 12.8 % (11.6-14.6); RBC Distribution Width SD 42.3 fl (35.1-43.9); Red Blood Count 4.35 M/mm3 (4.6-6.2)
[2020-08-09 07:18] LABS: Anion Gap 4 (5-15); BUN 16 mg/dL (7-18); BUN/Creat Ratio 16.8 RATIO (10-20); Calcium,Total 8.9 mg/dL (8.5-10.1); Chloride 106 mmol/L (98-107); Creatinine, Serum 0.95 mg/dL (0.70-1.30); EST Glomerular Filtration Rate 81 mL/min (>60); Est Glom Filt Rate - Afr Amer 97 mL/min (>60); Glucose 118 mg/dL (74-106); Potassium 4.1 mmol/L (3.5-5.1); Sodium Level 138 mmol/L (136-145)
--- NOTE | 2020-08-09 07:30 | PCM.PN.ORT ---
Subjective: 79-year-old male is 1 day following a left total hip replacement. Pain has been well controlled overnight. He denies chest pain shortness of breath dizziness or calf pain. His night nurse admits that there has been some bloody drainage over the dressing but it had not touched 3 borders of the dressing yet. Patient seems to be doing well overall. He would like to consider a discharge to home later today he will plan for outpatient physical therapy. Objective: Patient is alert and oriented x3. No acute distress at rest. Breathing easily without respiratory distress. Inspection of left hip reveals waterproof dressing that has blood saturation over 3 borders surgical site is without erythema warmth or signs of infection. Negative Milton bilaterally without signs of DVT. Patient is able to actively plantar and dorsiflex bilateral feet against resistance. Sensation intact to light touch. Capillary refill less than 3 seconds. Neurovascularly intact. Patient's nurse is present during the exam she is going to plan to change to a new 10 inch Mepilex dressing today and will apply pressure/compression to the area Postoperative x-rays were discussed and reviewed with Dr. Ferdis Wallace consistent with a new cemented left total hip replacement prostheses in good position without evidence of hardware failure loosening Laboratory results reviewed from today - Physical Exam Vitals/I&O's: Vital Signs Temp Pulse Resp BP Pulse Ox 98.7 F 92 18 130/54 H 98 08/09/20 03:12 08/09/20 03:12 08/09/20 03:12 08/09/20 03:12 08/09/20 03:12 Oxygen Flow Rate (L/min) 6 Oxygen Delivery Method Room Air Weight: 103.8 kg Body Mass Index (BMI) 34.7 Intake and Output for Last 24 Hours 08/07/20 08/08/20 08/09/20 23:59 23:59 23:59 Intake Total 2836.50 / 2836.50 1850 / 1850 Output Total 1025 / 1025 1250 / 1250 Balance 1811.50 / 1811.50 600 / 600 Laboratory Results 08/08/20 09:24: POC Glucose 109 08/09/20 06:50: WBC 15.0 H, RBC 4.35 L, Hgb 13.6, Hct 39.6 L, MCV 91.0, MCH 31.3, MCHC 34.3, RDW Std Deviation 42.3, RDW Coeff of Bartolome 12.8, Plt Count 198, MPV 10.1 08/09/20 06:50: Sodium 138, Potassium 4.1, Chloride 106, Carbon Dioxide 28.0, Anion Gap 4 L, BUN 16, Creatinine 0.95, Estim Creat Clear Calc 60.00, Est GFR (MDRD) Af Amer 97, Est GFR (MDRD) Non-Af 81, BUN/Creatinine Ratio 16.8, Glucose 118 H, Calcium 8.9 Current Medications Acetaminophen (Acetaminophen 500 Mg Tablet) 1,000 mg PO Q8 [facility] Last Admin: 08/09/20 06:46 Dose: 1,000 mg Documented by: Cyclobenzaprine HCl (Cyclobenzaprine Hcl 10 Mg Tablet) 10 mg PO QHS PRN PRN PRN Reason: MUSCLE SPASMS Dexamethasone Sodium Phosphate (Dexamethasone 10 Mg/Ml Vial) 10 mg IV X1 ONE Stop: 08/09/20 10:31 Lactated Ringer's () 1,000 mls @ 125 mls/hr IV .Q8H [facility] Last Admin: 08/09/20 06:47 Dose: 125 mls/hr Documented by: Sodium Chloride () 250 mls @ 15 mls/hr IV .[id number] PRN PRN Reason: Saline Flush Sodium Chloride () 250 mls @ 15 mls/hr IV .[id number] PRN PRN Reason: Additional IVPB Infusion Insulin Human Lispro (Insulin Lispro 100 Unit/Ml Insuln.Pen) 1 - 6 unit SC Q4H PRN PRN; Protocol PRN Reason: BG>/= 180, SEE PROTOCOL Morphine Sulfate (Morphine 2 Mg/Ml Syringe) 2 - 4 mg IV Q2H PRN PRN PRN Reason: Pain Score 4-10 Morphine Sulfate (Morphine 4 Mg/Ml Syringe) 2 - 4 mg IV Q2H PRN PRN PRN Reason: Pain Score 4-10 Ondansetron HCl (Ondansetron 4 Mg/2 Ml Vial) 4 mg IV Q8H PRN PRN PRN Reason: NAUSEA Oxycodone HCl (Oxycodone 5 Mg Tablet) 5 - 10 mg PO Q4H PRN PRN PRN Reason: Pain Score 4-10 Rivaroxaban (Rivaroxaban 10 Mg Tablet) 10 mg PO DAILY@0600 [facility] Last Admin: 08/09/20 06:46 Dose: 10 mg Documented by: Senna/Docusate Sodium (Senna/Docusate Sodium 1 Tablet) 2 tablet PO BID FELICE Last Admin: 08/08/20 21:48 Dose: 2 tablet Documented by: Sodium Chloride (0.9% Saline Lock 10 Ml Syringe) 10 - 40 ml IV UD PRN PRN Reason: SALINE FLUSH Medical Necessity - Tobacco Use Smoking Status: Former smoker Tobacco Use: Non-smoker Assessment/Plan All Active Problems (This Medical Record has been edited. Action required.) History of arthroplasty of right hip (Acute) 1. Status post left total hip replacement postoperative day #1 2. Continue Tylenol and OxyIR for pain control 3. DVT prophylaxis bilateral teds SCDs and Xarelto 10 mg for 1 week we will then transition to aspirin 81 mg 1 p.o. twice daily for an additional 3 weeks 4. Begin PT/OT weightbearing as tolerated left lower extremity with a walker hip dislocation precautions 5. Plan for new Mepilex dressing and pressure continue to monitor bloody drainage 6. Leukocytosis afebrile without acute signs of infection likely resulting from Decadron versus acute stress response continue to monitor anticipate resolution over the next several days 7. Encourage incentive spirometry 8. Continue discharge planning with case management plan for outpatient physical therapy 9. Patient is orthopedically stable and okay for discharge to home today if having adequate pain control doing well with physical therapy and not having active drainage from the surgical site
--- NOTE | 2020-08-09 07:38 | DCINST_ITS ---
Discharge Diet: No Restrictions Discharge Activity: May Not Drive - while taking narcotic pain medications., May not drive while taking narcotic pain medications., Use Walker May shower in (days): 2 - only if incision is dry and without drainage. Do NOT soak/submerge in tub/pool/durham/stream/hot tub. Okay to shower over waterproof dressing Ice area for (Minutes): 20 Weight Bearing Status: Weight bearing as tolerated Elevate: Operative Extremity Additional Activity Instructions:: Wear elastic stockings for 2 weeks. DO NOT use alcohol with narcotic pain medication. DO NOT make important decisions while taking narcotic medication. If you have problems with taking your medication (rash, itching, nausea, etc.) call the office at once. Call your doctor if your incision/area has: Continuous Slow Oozing, Increased Pain/ Swelling, Increased Redness, Foul Smelling Discharge Call your doctor if you observe: Fever of 101 or Higher, Numbness or Tingling, Shortness of breath, Chest pain, Calf discomfort, Uncontrolled pain Remove Dressing in (days):: 5 Cleanse incision/area with: Soap & Water Allergies/Adverse Reactions: Allergies No Known Allergies Allergy (Verified 07/12/20 10:26) Medications to take at Discharge Gluc Early/Chondro Early A/Vit C/Mn [Glucosamine-Chondroitin Cap] 1 each PO DAILY 12/25/16 Magnesium Oxide 1,200 mg PO DAILY 12/25/16 Ubidecarenone [Coq10] 75 mg PO DAILY 12/25/16 cycloBENZAPRine HCl [Flexeril] 10 mg PO QHS PRN 12/25/16 Ascorbic Acid [Vitamin C] 1,000 mg PO DAILY 07/12/20 Cholecalciferol (Vitamin D3) [Vitamin D3] 10 mcg PO DAILY 07/12/20 Selenium 200 mcg PO DAILY 07/12/20 Zinc 50 mg PO DAILY 07/12/20 Acetaminophen [Tylenol] 1,000 mg PO Q8 #60 tab 08/09/20 Oxycodone [Oxyir] 5 - 10 mg PO Q4H PRN PRN 7 Days #56 tab 08/09/20 Rivaroxaban [Xarelto] 10 mg PO DAILY@0600 #6 tab 08/09/20 Senna/Docusate Sodium [Senokot-S] 2 tab PO BID #30 tab 08/09/20 The following prescriptions were given: Oxycodone [Oxyir] 5 - 10 mg PO Q4H PRN PRN 7 Days #56 tab PRN Reason: Pain Score 4-10 Prescription Printed Senna/Docusate Sodium [Senokot-S] 2 tab PO BID #30 tab Prescription Printed Acetaminophen [Tylenol] 1,000 mg PO Q8 #60 tab Prescription Printed Rivaroxaban [Xarelto] 10 mg PO DAILY@0600 #6 tab Prescription Printed Primary Care Physician: Jed Burden Chi, MD [Primary Care Provider] - Test Results: Test results from this visit will be discussed in further detail at your follow- up appointment, if applicable.
[2020-08-09] MEDS: dexAMETHasone 10 MG/ML Vial IV (08:40)
[2020-08-09] MEDS: Senna/Docusate Sodium 1 Tablet 2 TABLET PO (08:40)
[2020-08-09] MEDS: 0.9% Saline Lock 10 ML Syringe IV (08:41)
[2020-08-09 09:02] VITALS: BP 119/96; PULSE 104; RESP 18; TEMP 36.7; O2SAT 96
--- NOTE | 2020-08-09 10:55 | CASEMGMT ---
RN ANGELITO Face to Face with patient for initial transition planning/care coordination assessment. RN CM introduced self and role at [facility]. Patient lying in bed, alert and oriented. Patient willing to participate in assessment and is able to answer all questions appropriately. Care providers, pharmacy, and demographics verified. Patient wishes to discharge home and is schedule for outpatient therapy at [facility] Patient states he has no further needs or concerns at this time. CM to follow for discharge planning needs that may arise. PCP: Bertram Specialists: Joshua Wallace Pharmacy: [facility] Insurance: [facility] Prescription Benefit: yes Living Will/HPOA: yes, Kerri Holly LNOK: Living Arrangements: Patient lives with in a single story home with 3 steps and grab bar to enter the home. Patient states he was independent prior to surgery. Transportation: DME/HHC: Patient states she has raised toilet, cane, walker, grab bars, and hip kit at home. Disposition Plan: Patient to discharge home with family support, outpatient therapy, and follow-up plans in place. Rosa Isela PINON, RN, CM
--- NOTE | 2020-08-09 12:04 | PHA.DC.MC ---
Pharmacy Service has performed discharge medication reconciliation and counseling for this patient. The patient was counseled on the following discharge medications and changes in medications for homegoing were reviewed. 1. OXYCODONE 2. SENNA/DOCUSATE 3. ACETAMINOPHEN 4. XARELTO The Reason for Use, instructions for use, and potential side effects were reviewed for all new medications. The patient's questions regarding all of their medications were answered. The patient was able to verbally demonstrate an understanding of their discharge medications. Home Medications Gluc Early/Chondro Early A/Vit C/Mn [Glucosamine-Chondroitin Cap] 1 each PO DAILY 12/25/16 Magnesium Oxide 1,200 mg PO DAILY 12/25/16 Ubidecarenone [Coq10] 75 mg PO DAILY 12/25/16 cycloBENZAPRine HCl [Flexeril] 10 mg PO QHS PRN 12/25/16 Ascorbic Acid [Vitamin C] 1,000 mg PO DAILY 07/12/20 Cholecalciferol (Vitamin D3) [Vitamin D3] 10 mcg PO DAILY 07/12/20 Selenium 200 mcg PO DAILY 07/12/20 Zinc 50 mg PO DAILY 07/12/20 Acetaminophen [Tylenol] 1,000 mg PO Q8 #60 tab 08/09/20 Oxycodone [Oxyir] 5 - 10 mg PO Q4H PRN PRN 7 Days #56 tab 08/09/20 Rivaroxaban [Xarelto] 10 mg PO DAILY@0600 #6 tab 08/09/20 Senna/Docusate Sodium [Senokot-S] 2 tab PO BID #30 tab 08/09/20 The patient's discharge medication list was reviewed for discrepancies and discrepancies were resolved.
[2020-08-09 12:45] VITALS: BP 140/75; PULSE 100; RESP 18; TEMP 37.2; O2SAT 96
== END 2020-08-09 13:58 | disposition home or self-care (01) ==
LOC: SDC 13:06 → MS3 13:06
PROVIDERS: Admitting Provider Orthopaedic Surgery; PCP Family Medicine Geriatric Medicine; Referring Provider Orthopaedic Surgery; Visit Provider Orthopaedic Surgery
PROC: 0SRB0JZ Replacement of Left Hip Joint with Synthetic Substitute, Open Approach (ICD-10-PCS; CPT 27130; principal; 2020-08-08 10:00)
DX: M16.12 Unilateral primary osteoarthritis, left hip (principal); Z79.899 Other long term (current) drug therapy; Z79.82 Long term (current) use of aspirin; G47.30 Sleep apnea, unspecified; Z87.891 Personal history of nicotine dependence; Z20.828 Contact with and (suspected) exposure to other viral communicable diseases
CPT/HCPCS: 01214; 27130; 36415; 71046; 73502; 80048; 82962; 85027; 87077; 87081; 87426; 88305; 88311; 96361; 96365; 96366; 96375; 97110; 97161; 97166; 97530; 97535; 99218; 99251; C1776; C9803; J7120; A4216; G0378; G0379; G0463; J2405

== ENCOUNTER 2020-08-11 10:00 | Outpatient (RCR) | payer MEDICARE, SELFPAY ==
[2020-08-08 16:06] VITALS: BMI 34.7
== END 2020-08-11 23:59 ==
LOC: IMMUN 10:00
PROVIDERS: PCP Family Medicine Geriatric Medicine; Visit Provider Family Medicine
DX: Z23 Encounter for immunization (principal)
CPT/HCPCS: 0011A; 0012A; 91301

== ENCOUNTER → 2020-08-22 11:14 | Outpatient (CLI) | payer MEDICARE, SELFPAY ==
[2020-08-08 16:06] VITALS: BMI 34.7
[2020-08-22 11:46] LABS: Absolute Lymphocyte Count 1.23 X10^3/uL (0.83-4.51); Absolute Neutrophil Count 5.6 X10^3/uL (2.0-7.7); Basophil# 0.03 X10^3/uL; Basophil% 0.4 % (0-1); Eosinophil# 0.13 X10^3/uL; Eosinophils% 1.7 % (0-5); Hematocrit 39.4 % (40-54); Lymphocyte # 1.23 X10^3/ul (4.0); Lymphocyte % 16.3 % (19-41); Mean Corpuscular Hgb 31.4 pg (27.0-32.0); Mean Corpuscular Volume 95.2 fL (80-94); Mean Platelet Vol. 9.4 fl (6.2-12.0); Monocyte# 0.48 X10^3/uL; Monocyte% 6.4 % (0-10); NRBC Flagged by Analyzer 0 % (0-5); Neutrophil # 5.63 X10^3/uL (2.7-7.7); Neutrophil % 74.8 % (47-70); Platelet Count 205 K/mm3 (150-450); RBC Distribution Width CV 13.9 % (11.6-14.6); RBC Distribution Width SD 48.2 fl (35.1-43.9); Red Blood Count 4.14 M/mm3 (4.6-6.2); White Blood Count 7.5 K/mm3 (4.4-11.0)
[2020-08-22 11:49] LABS: Erythrocyte Sedimentation Rate 9 mm/hr (0-20)
[2020-08-22 12:00] LABS: CRP 6.72 mg/L (0.0-3.0)
== END ==
LOC: LAB 11:17
PROVIDERS: PCP Family Medicine Geriatric Medicine; Referring Provider Physician Assistant Surgical; Visit Provider Physician Assistant Surgical
DX: Z96.642 Presence of left artificial hip joint (principal)
CPT/HCPCS: 36415; 85025; 85652; 86140

== ENCOUNTER → 2020-08-24 14:51 | Outpatient (CLI) | payer MEDICARE, SELFPAY ==
[2020-08-08 16:06] VITALS: BMI 34.7
--- NOTE | 2020-08-24 15:38 | CT_ITS ---
STUDY: CT SCAN HIP LEFT REASON FOR EXAM: Male, 79 years old. LEFT HIP EFFUSION AFTER SURGERY X 2 WEEKS AGO HAVING REDNESS AND SWELLING RADIATION DOSAGE (If Supplied By Facility): CTDIvol = ( 23.70 ) mGy, DLP = ( 1039.91 ) mGycm. Individualized dose optimization techniques were used for this CT.? TECHNIQUE: Multiple axial tomographic images of the left hip joint were obtained without intravenous contrast administration. Coronal and sagittal reconstruction was obtained as well. COMPARISON: None. FINDINGS: The patient is status post left total hip replacement. There is good alignment. The nodule was evidence of a 5.8 cm x 7.7 cm x 10.4 cm well-defined fluid collection in the subcutaneous tissues overlying the operative site on the lateral aspect. There is overlying skin thickening. This most likely represents a postoperative resolving hematoma or seroma. CT/Extremity Lower without Contra IMPRESSION: 5.8 cm x 7.7 cm x 10.4 cm well-defined fluid collection in the subcutaneous tissues overlying the operative site overlying the prosthetic left hip. This may represent either a resolving hematoma or seroma. The hip replacement is in good position. Electronically Signed: Reji Alanis MD at 15:52 EST , Service support ,
[2020-08-24 17:34] LABS: Pathologist Comment May follow
[2020-08-24 17:59] LABS: RBC /Synovial Fluid 0.289 10^6/uL (0); Synovial Fld Mononuclear WBC % 57.4 %; Synovial Fld Polynuclear WBC % 42.6 %
[2020-08-24 18:26] LABS: AUTO B FLUID DILUENT BKGD CT WBC <0.1 RBC <0.01 (W<.1,R<.01); Appearance /Synovial Fluid Turbid (CLEAR); Color / Synovial Fluid Red (Pale Yellow); Source / Synovial Fluid LEFT HIP; Source- Body Fluid SYNOVIAL
[2020-08-24 19:44] LABS: Lymph 14 %; Monocyte /Synovial Fluid 9 %; Neutrophil 77 % (0-25)
[2020-08-25 12:09] LABS: Pathologist Review Reviewed
== END ==
LOC: CT 14:52
PROVIDERS: Orthopaedic Surgery; PCP Family Medicine Geriatric Medicine; Referring Provider Physician Assistant; Visit Provider Physician Assistant
DX: M25.452 Effusion, left hip (principal); Z96.642 Presence of left artificial hip joint
CPT/HCPCS: 73700; 87070; 87075; 87205; 89050; 89051; 89060

== ENCOUNTER 2021-08-07 08:52 | Outpatient (CLI) | payer MEDICARE, SELFPAY | END 2021-08-07 23:59 | disposition short-term general hospital (02) | LOC: PSN 08:53 | PROVIDERS: PCP Internal Medicine; Referring Provider Orthopaedic Surgery; Visit Provider Orthopaedic Surgery | DX: Z20.822 Contact with and (suspected) exposure to COVID-19 (principal) | CPT/HCPCS: 87635; C9803; U0003; U0005 ==

== ENCOUNTER → 2022-05-30 | Outpatient (CLI) | payer MEDICARE, SELFPAY ==
[2022-05-30 08:23] LABS: Hematocrit 42.6 % (40-54); Hemoglobin 14.5 g/dL (13.0-16.5); Mean Corpuscular Hgb 30.9 pg (27.0-32.0); Mean Corpuscular Volume 90.8 fL (80-94); Mean Platelet Vol. 10.4 fl (6.2-12.0); Platelet Count 164 K/mm3 (150-450); RBC Distribution Width CV 12.9 % (11.6-14.6); RBC Distribution Width SD 42.4 fl (35.1-43.9); Red Blood Count 4.69 M/mm3 (4.6-6.2); White Blood Count 5.4 K/mm3 (4.4-11.0)
[2022-05-30 08:31] LABS: Anion Gap 4 (5-15); BUN 25 mg/dL (7-18); BUN/Creat Ratio 22.7 RATIO (10-20); Calcium,Total 9.9 mg/dL (8.5-10.1); Chloride 107 mmol/L (98-107); EST Glomerular Filtration Rate 68 mL/min (>60); Est Glom Filt Rate - Afr Amer 82 mL/min (>60); Glucose 138 mg/dL (74-106); Potassium 4.2 mmol/L (3.5-5.1); Sodium Level 139 mmol/L (136-145)
== END | disposition home or self-care (01) ==
PROVIDERS: PCP Internal Medicine; Referring Provider Orthopaedic Surgery; Visit Provider Orthopaedic Surgery
DX: Z01.818 Encounter for other preprocedural examination (principal); Z01.810 Encounter for preprocedural cardiovascular examination
CPT/HCPCS: 36415; 80048; 85027

== ENCOUNTER → 2022-06-04 | Outpatient (CLI) | payer MEDICARE, SELFPAY ==
--- NOTE | 2022-06-04 09:26 | EKG12_ITS ---
Test Reason : PRE-OP Blood Pressure : / mmHG Vent. Rate : 063 BPM Atrial Rate : 063 BPM P-R Int : 164 ms QRS Dur : 092 ms QT Int : 400 ms P-R-T Axes : 027 -07 025 degrees QTc Int : 409 ms Normal sinus rhythm Normal ECG Confirmed by JIM WRIGHT, ATA ([id number]), sound editor FAUSTINO HUI ([id number]) on 06/05/2022 11:26:39 AM Referred By: Fredis Wallace Confirmed By:ATA FERNANDEZ MD
[2022-06-04 13:43] LABS: Hemoglobin 13.9 g/dL (13.0-16.5); Mean Corp Hgb Conc 33.9 g/dL (32-36); Mean Corpuscular Hgb 31.5 pg (27.0-32.0); Platelet Count 165 K/mm3 (150-450); RBC Distribution Width CV 12.8 % (11.6-14.6); RBC Distribution Width SD 44.1 fl (35.1-43.9); Red Blood Count 4.41 M/mm3 (4.6-6.2); White Blood Count 6.1 K/mm3 (4.4-11.0)
[2022-06-04 14:10] LABS: Anion Gap 2 (5-15); BUN 19 mg/dL (7-18); Chloride 105 mmol/L (98-107); EST Glomerular Filtration Rate 76 mL/min (>60); Est Glom Filt Rate - Afr Amer 92 mL/min (>60); Glucose 136 mg/dL (74-106); Potassium 4.4 mmol/L (3.5-5.1); Sodium Level 140 mmol/L (136-145)
== END | disposition home or self-care (01) ==
PROVIDERS: PCP Internal Medicine; Referring Provider Orthopaedic Surgery; Visit Provider Orthopaedic Surgery
DX: Z01.818 Encounter for other preprocedural examination (principal); Z01.810 Encounter for preprocedural cardiovascular examination; R73.09 Other abnormal glucose
CPT/HCPCS: 36415; 80048; 83036; 85027; 93005

== ENCOUNTER 2022-06-18 20:41 | Inpatient (IN) | payer MEDICARE, SELFPAY ==
[2022-06-18 20:42] VITALS: BP 160/68; PULSE 76; RESP 18; TEMP 36.7; O2SAT 100; BMI 33.0
--- NOTE | 2022-06-18 20:48 | ED.RN ---
PT A VERY POOR HISTORIAN, ASKED HIM IF HE HAD WEAKNESS ON ONE SIDE OR THE OTHER THE PT REPLIED, WELL IT COULD BE MY RIGHT SIDED,OR MAYBE MY L SIDE. PT ABLE TO MAEX4, SPEECH CLEAR. PT STATES THAT DR Dent SENT HIM IN A POSSIBLE STROKE. NO FAMILY AT THE BED SIDE. DR ESTEBAN MADE AWARE PT MAYBE A STROKE.
--- NOTE | 2022-06-18 21:27 | CT_ITS ---
We are attempting to reach an attending provider to discuss findings. An addendum with communication details will be sent when the communication is complete. STUDY: CT BRAIN WITHOUT CONTRAST REASON FOR EXAM: Male, 81 years old. Neuro deficit, acute, stroke suspected RADIATION DOSAGE (If Supplied By Facility): CTDIvol = ( 44.99 ) mGy, DLP = ( 829.85 ) mGycm TECHNIQUE: Transaxial CT imaging of the brain was performed without administration of intravenous contrast material. Individualized dose optimization techniques were used for this CT. COMPARISON: October 02, 2018 CT abdomen and pelvis FINDINGS: Normal soft tissue structures. Normal calvarium. There is moderate cerebral atrophy with widening of the extra-axial spaces and ventricular dilatation. There are areas of decreased attenuation within the white matter tracts of the supratentorial brain, consistent with microvascular disease changes. 2. Curvilinear radiodensities within the M3 branches of right middle cerebral artery may represent hyperdense MCA sign. Associated hypodensity of the perirolandic landry and white matter noted. Intracranial atherosclerosis. Normal basal ganglia and thalami. Normal brainstem. Normal cerebellum. There is no intracranial hemorrhage. There are no findings of an acute ischemic infarction. Normal visualized paranasal sinuses. 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
--- NOTE | 2022-06-18 21:27 | EKG12_ITS ---
Test Reason : DYSRHYTHMIA Blood Pressure : / mmHG Vent. Rate : 070 BPM Atrial Rate : 070 BPM P-R Int : 170 ms QRS Dur : 090 ms QT Int : 386 ms P-R-T Axes : 036 -01 019 degrees QTc Int : 416 ms Sinus rhythm with occasional Premature ventricular complexes Otherwise normal ECG Confirmed by JM WRIGHT, ANA ([id number]), production editor FAUSTINO HUI ([id number]) on 06/19/2022 9:19:56 AM Referred By: SANDRO Confirmed By:ANA ONEAL MD
--- NOTE | 2022-06-18 21:28 | CT_ITS ---
STUDY: CTA HEAD AND NECK WITH CONTRAST REASON FOR EXAM: Male, 81 years old. Neuro deficit, acute, stroke suspected RADIATION DOSAGE (If Supplied By Facility): CTDIvol = ( 20.36 ) mGy, DLP = ( 805.28 ) mGycm TECHNIQUE: CT angiography was performed with a multi-detector CT scanner. Data acquisition was obtained from the skull base through the vertex following intravenous administration of IV 100mL Isovue-[id number]. MIP images were reconstructed from the axial data set. Post-processing of the angiographic images was performed, with multiplanar reformation and 3D reconstruction. Individualized dose optimization techniques were used for this CT. COMPARISON: CT brain October 02, 2018 FINDINGS: Normal bilateral petrous carotid arteries. Normal right cavernous carotid artery with a normal supraclinoid bifurcation. Normal left cavernous carotid artery with a normal supraclinoid bifurcation. Normal right A1 segments of the anterior cerebral artery. Normal left A1 segments of the anterior cerebral artery. Normal intact anterior communicating artery (ACOM). Normal bilateral A2 segments of the anterior cerebral arteries. Normal right M1 and M2 segments of the middle cerebral arteries, with a normal M1 bifurcation. Normal left M1 and M2 segments of the middle cerebral arteries, with a normal M1 bifurcation. There is non-visualization of the right posterior communicating artery (PCOM). There is non-visualization of the left posterior communicating artery (PCOM). Moderate focal stenosis right and left distal vertebral arteries due to mixed plaque. Normal basilar artery with a normal basilar bifurcation. The visualized bilateral superior cerebellar (SCA) arteries are normal. Normal bilateral P1, P2 and visualized P3 segments of the posterior cerebral arteries. There is no demonstrated aneurysm of the pala of Duarte. Hypodensity along the perirolandic cortex on the right. AORTIC ARCH: Normal visualized aortic arch. Normal origins of the brachiocephalic, left common carotid, and left subclavian arteries. RIGHT CAROTID ARTERIES: Normal right common carotid artery (CCA). There is moderate atherosclerotic plaque formation with moderate narrowing of the right carotid bulb. There is moderate atherosclerotic plaque formation of the origin of the right internal carotid artery with an estimated stenosis of 50-69% stenosis. Normal visualized cervical portion of the right internal carotid artery. Normal origin of the right external carotid artery (ECA). LEFT CAROTID ARTERIES: Normal left common carotid artery (CCA). There is mild atherosclerotic plaque formation with minimal narrowing of the left carotid bulb. Normal origin of the left internal carotid (ICA) artery without a hemodynamically significant stenosis. Normal visualized cervical portion of the left internal carotid artery. Normal origin of the left external carotid artery (ECA). VERTEBRAL ARTERIES: Focal calcified plaque and probable stenosis origin bilateral vertebral arteries. . Moderate focal stenoses and flat V4 segments bilaterally. 17 mm hypodense lesion right lobe of the thyroid. CT/STROKE CTA Head AND Neck W/Con IMPRESSION: Acute or subacute infarct right perirolandic cortex and subcortical white matter. No major branch occlusion is identified however hyperdense MCA sign on the noncontrast CT may obscure a M3 branch occlusion. Moderate stenosis proximal right internal carotid artery. Multiple bilateral vertebral artery stenoses. 17 mm nodule right lobe of the thyroid. Recommend follow-up nonemergent thyroid ultrasound. N.B. : The above Results were Read Back by Alexis Zepeda MD to dr shameka MD, and understanding confirmed on 06/18/2022 22:39:00 (ET). Electronically Signed: Alexis Zepeda MD at 22:40 EST ,
--- NOTE | 2022-06-18 21:29 | EDS_ITS ---
HPI History of Present Illness Chief Complaint: Neuro S/Sx Detail of Chief Complaint: Got up around 1 AM this morning. Was off balance fell. Informant: patient and spouse/S.O. Onset/Context/Timing Onset: Today and Hours Timing: Continuous Current Severity: Mild Maximum Severity: Mild Narrative Narrative: 81-year-old male history of borderline diabetes diet-controlled. Currently on no medications. This morning he got up around 1 AM to go to the bathroom. Lost his balance fell and a minor head injury. He has had ataxia since that time. Today normally walks without any difficulty. Minimal headache. Denies any recent illness. Denies any nausea, vomiting or diarrhea. No fever or chills. No dysuria. Was seen at his primary care physician's office due to his ataxia which is new and referred into the emergency department today. He denies any trouble moving his arms or legs. Prior similar symptoms: No Recent Illness/Hospitalization: No PFSH PFSH Medical History no medical history Home Medications NK 06/18/22 [History Last Taken Unknown] Allergy/AdvReac Type Severity Reaction Status Date / Time No Known Allergies Allergy Verified 06/18/22 20:52 Surgical History Hx of hand surgery Social History Smoking Status: Former smoker ROS ROS ED ROS Narrative Trouble walking. Off balance. Review of Systems ROS Unobtainable: Denies due to encephalopathy Constitutional Constitutional ED: Denies chills or fever(s) Eyes Eyes: Denies blurry vision ENT ENT ED: Denies ear pain Cardiovascular Cardiovascular: Denies chest pain Respiratory/Chest Respiratory/Chest: Denies cough or dyspnea Gastrointestinal Gastrointestinal: Denies abdominal pain Genitourinary Genitourinary ED: Denies dysuria or hematuria Musculoskeletal Musculoskeletal: Denies arthralgias Integumentary Denies abscess or Abrasions Neurologic Neurologic: Reports headache(s); Denies paresthesias or weakness Psychiatric Psychiatric: Denies anxiety or depression Endocrine Endocrinology: Denies cold intolerance or heat intolerance Hematologic/Lymphatic Hematologic/Lymphatic: Reports none Allergic/Immunologic Allergic/Immunologic ED: Denies mouth swelling or tongue swelling EXAM Physical Exam Narrative Exam Narrative: 81-year-old male no acute distress. Vital signs stable afebrile. Pulse ox 100% on room air no signs hypoxia. at bedside. H EENT exam unremarkable atraumatic. Pupils round reactive light. No facial droop. Normal speech. Neck nontender. Trachea midline. Back nontender. Lungs clear to auscultation. Heart regular rhythm rate about 75 no murmur. Chest wall nontender. Abdomen soft nontender. Moving all 4 extremities. Calves are nontender without edema or cords. He has had a recent surgery to the palm of his right hand it is well- healing. Dry and clean. 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 Normal dorsi plantarflexion. He can lift either arm or leg without any drift. In bed his neurologic exam is normal. His NIH is 0. He is awake alert. No facial droop. Normal speech. Fingertip to nose within normal limits bilaterally. Normal dorsi plantarflexion. I have not gotten him up out of bed to walk him as of yet. Const Vital Signs: 06/18/22 20:42 06/18/22 22:12 06/18/22 22:12 Temperature 98.0 F Temperature Source Temporal Pulse Rate 76 78 Respiratory Rate 18 11 L Blood Pressure 160/68 H 150/77 H Blood Pressure Mean 98 101 Pulse Ox 100 98 98 Oxygen Delivery Method Room Air Room Air Room Air 06/18/22 23:04 Temperature Temperature Source Pulse Rate 85 Respiratory Rate 23 H Blood Pressure 141/84 H Blood Pressure Mean 103 Pulse Ox 98 Oxygen Delivery Method Room Air Positive well nourished and well developed; Negative for cachectic, contractures or unkempt General Appearance ED: well developed and NAD; Negative for unkempt, cachectic, contractures, cyanotic, diaphoretic or pallor Nutritional Appearance: Negative for cachectic HEENT Reports moist mucous membranes; Denies dry mucous membranes Negative for trauma or tenderness Mouth ED: No dry mucous membranes Mouth: No dry mucous membranes Eyes PERRL and EOMs intact bilaterally General Eye ED: Negative for pale conjunctiva, scleral icterus or other Neck no lymphadenopathy, supple and no JVD General: Negative for tenderness Chest Wall inspection of chest normal and palpation of chest normal Chest: Negative for other Resp normal respiratory effort and clear to auscultation bilaterally Effort and Inspection: Negative for retractions Auscultation: Negative for rales, rhonchi or wheezes Cardio regular rate, regular rhythm, S1 normal heart sound, S2 normal heart sound and no murmurs GI normal to inspection, nondistended, normoactive bowel sounds, non-tender, non- distended and no masses Inspection: Negative for abdominal distention Auscultation: normoactive bowel sounds Palpation: soft; Negative for tender or guarding Back/Spine no CVA tenderness General Back: Negative for CVA tenderness Cervical Spine: Negative for cervical spine tenderness Thoracic Spine / Upper Back: Negative for thoracic spinal tenderness Lumbar Spine / Lower Back: Negative for lumbar spinal tenderness Extremity normal to inspection Extremity Narrative: Well-healing right hand incision. Sutures in place. Dry and clean. General Extremety ED: Negative for edema or tenderness General Extremity: Negative for edema Neuro oriented x3, CN's II-XII intact bilaterally and no sensory deficits noted Neuro Narrative: Patient knows date, month, year and president denies states. Sensorium / Orientation: alert; Negative for orientation impaired, lethargic or stuporous Motor Exam: strength 5/5 throughout Psych mental status grossly normal Appearance: Negative for unkempt Attitude: No agitated Mood & Affect: Negative for depressed, anxious or tearful Skin no rashes or lesions noted, no wounds and skin turgor normal General Skin Exam: Negative for jaundice or pallor Lesions: No lesion noted Rashes: No rashes noted Trauma: Negative for abrasion Wounds: Negative for wounds noted MDM MDM MDM Narrative Medical decision making narrative: 81-year-old male diet-controlled diabetic. On no medications. Has had ataxia since early this morning. Noticed symptoms around 1 AM. Last known well was last night before he went to bed. Exam in bed is unremarkable. Reportedly ataxia when he walks. He will undergo a stroke work-up. He currently is not a tPA candidate. Multiple repeat exams unchanged. Patient will be admitted for stroke and ataxia. I did discuss his care with the [facility] stroke neurologist. I will admit to our hospitalist here. Lab Data Attestation: I reviewed the patient's lab results. Lab results narrative: CBC normal. White count 8. H&H of 14 and 44. PT/INR PTT normal. Electrolytes normal gap of 5. BUN of 19 creatinine of 1. Glucose of 99. Troponin 10. Chest x-ray unremarkable. CTA of head neck and CT showed an M3 stroke. Discussed with the [facility] neurologist. Given the patient's timing of this occurring about 24 hours ago he is not a tPA candidate. And there is no benefit of attempted retrieval at this time. Labs: Laboratory Results - last 24 hr 06/18/22 06/18/22 06/18/22 20:50 20:50 20:50 WBC 8.9 RBC 4.79 Hgb 14.5 Hct 44.2 MCV 92.3 MCH 30.3 MCHC 32.8 RDW Std Deviation 42.4 RDW Coeff of Bartolome 12.5 Plt Count 220 MPV 9.9 Immature Gran % (Auto) 0.400 Neut % (Auto) 70.6 H Lymph % (Auto) 18.9 L Denali % (Auto) 7.9 Eos % (Auto) 1.5 Baso % (Auto) 0.7 Absolute Neuts (auto) 6.3 Absolute Lymphs (auto) 1.68 Nucleated RBC % 0 PT 13.0 INR 1.0 APTT 29.2 Sodium 138 Potassium 3.7 Chloride 102 Carbon Dioxide 31.0 Anion Gap 5 BUN 19 H Creatinine 1.03 Estim Creat Clear Calc 53.50 Est GFR (MDRD) Af Amer 89 Est GFR (MDRD) Non-Af 73 BUN/Creatinine Ratio 18.4 Glucose 99 Calcium 9.6 Troponin I High Sens 10 Radiography Chest X-Ray - ED: 1 View, Heart, Lungs, Mediastinum, Bony Structures, No Acute Disease and Chronic Changes Diagnostic Testing: Clinical Impression(s) from Imaging Studies Brain CT 06/18/22 21:27 IMPRESSION: 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 : The above Results were Read Back by Alexis Zepeda MD to Paul Davey MD, MD, and understanding confirmed on 06/18/2022 22:38:10 (ET). Electronically Signed: Alexis Zepeda MD at 22:15 EST , Head/Neck CTA 06/18/22 21:28 IMPRESSION: Acute or subacute infarct right perirolandic cortex and subcortical white matter. No major branch occlusion is identified however hyperdense MCA sign on the noncontrast CT may obscure a M3 branch occlusion. Moderate stenosis proximal right internal carotid artery. Multiple bilateral vertebral artery stenoses. 17 mm nodule right lobe of the thyroid. Recommend follow-up nonemergent thyroid ultrasound. N.B. : The above Results were Read Back by Alexis Zepeda MD to dr shameka MD, and understanding confirmed on 06/18/2022 22:39:00 (ET). Electronically Signed: Alexis Zepeda MD at 22:40 EST Reading Location ID and State: [address] [place] [address] , Service support , ADDENDUM: 06/18/22 2247 IMPRESSION: Acute or subacute infarct right perirolandic cortex and subcortical white matter. No major branch occlusion is identified however hyperdense MCA sign on the noncontrast CT may obscure a M3 branch occlusion. Moderate stenosis proximal right internal carotid artery. Multiple bilateral vertebral artery stenoses. 17 mm nodule right lobe of the thyroid. Recommend follow-up nonemergent thyroid ultrasound. N.B. : The above Results were Read Back by Alexis Zepeda MD to dr shameka MD, and understanding confirmed on 06/18/2022 22:39:00 (ET). Electronically Signed: Alexis Zepeda MD at 22:40 EST , Chest X-Ray 06/18/22 21:33 IMPRESSION: Normal x-ray examination of the chest. Electronically Signed: Alexis Zepeda MD at 22:00 EST , Chest x-ray, portable, single view interpreted by myself and the radiologist is no acute O'David. Normal cardiac silhouette mediastinum. Rhythm Strip Rhythm Strip: Sinus Rhythm Rate: 70 Ectopy: PVC(s) EKG Initial EKG: Attestation: I personally reviewed and interpreted this EKG as follows: Interpretation: Sinus Rhythm and No Acute Injury Pattern Comments: Normal sinus rhythm rate of 79. Occasional PVCs. No acute signs of MA or ischemia. No A. fib. Discharge Plan Triage Chief Complaint: Neuro S/Sx ED Provider: Yony Davey Dx/Rx/DC Orders Clinical Impression: Ataxia, Acute stroke due to ischemia Prescriptions: No Action NK Primary Care Provider: Manuel Panda Referrals: Manuel Panda MD [Primary Care Provider] - Disposition Disposition: Acute Care Hospital [facility]
--- NOTE | 2022-06-18 21:33 | RAD_ITS ---
STUDY: X-RAY CHEST REASON FOR EXAM: Male, 81 years old. Neuro deficit, acute, stroke suspected TECHNIQUE: Single frontal view of the chest. COMPARISON: July 25, 2020 FINDINGS: The lungs are clear and expanded. There is no demonstrated pleural abnormality. Normal size heart. Normal mediastinum and steph. Normal visualized pulmonary arteries. Normal visualized aortic arch and descending thoracic aorta. Normal visualized thoracic spine. Normal visualized ribs, clavicles, and shoulders. There is no demonstrated abnormality of the visualized soft tissue structures of the upper abdomen. RAD/Chest 1 View IMPRESSION: Normal x-ray examination of the chest. Electronically Signed: Alexis Zepeda MD at 22:00 EST ,
[2022-06-18 21:38] LABS: Absolute Lymphocyte Count 1.68 X10^3/uL (0.83-4.51); Absolute Neutrophil Count 6.3 X10^3/uL (2.0-7.7); Basophil# 0.06 X10^3/uL; Basophil% 0.7 % (0-1); Eosinophil# 0.13 X10^3/uL; Eosinophils% 1.5 % (0-5); Hematocrit 44.2 % (40-54); Hemoglobin 14.5 g/dL (13.0-16.5); Lymphocyte # 1.68 X10^3/ul (0.83-4.51); Lymphocyte % 18.9 % (19-41); Mean Corp Hgb Conc 32.8 g/dL (32-36); Mean Corpuscular Hgb 30.3 pg (27.0-32.0); Mean Corpuscular Volume 92.3 fL (80-94); Mean Platelet Vol. 9.9 fl (6.2-12.0); Monocyte% 7.9 % (0-10); NRBC Flagged by Analyzer 0 % (0-5); Neutrophil # 6.28 X10^3/uL (2.7-7.7); Neutrophil % 70.6 % (47-70); Platelet Count 220 K/mm3 (150-450); RBC Distribution Width CV 12.5 % (11.6-14.6); RBC Distribution Width SD 42.4 fl (35.1-43.9); Red Blood Count 4.79 M/mm3 (4.6-6.2); White Blood Count 8.9 K/mm3 (4.4-11.0)
[2022-06-18 21:46] LABS: Partial Thromboplast Time 29.2 Seconds (24.1-36.2)
--- NOTE | 2022-06-18 21:54 | ED.RN ---
PER DR. KINSEY, NIH ASSESSMENTS CAN BE DISCONTINUED.
[2022-06-18 22:12] VITALS: BP 150/77; PULSE 78; RESP 11; O2SAT 98
[2022-06-18 22:13] VITALS: BMI 33.5
[2022-06-18 22:19] LABS: Anion Gap 5 (5-15); BUN 19 mg/dL (7-18); BUN/Creat Ratio 18.4 RATIO (10-20); Calcium,Total 9.6 mg/dL (8.5-10.1); Chloride 102 mmol/L (98-107); Creatinine, Serum 1.03 mg/dL (0.70-1.30); EST Glomerular Filtration Rate 73 mL/min (>60); Est Glom Filt Rate - Afr Amer 89 mL/min (>60); Glucose 99 mg/dL (74-106); Potassium 3.7 mmol/L (3.5-5.1); Sodium Level 138 mmol/L (136-145); Troponin-I HS 10 pg/mL (3.0-78.0)
[2022-06-18 23:04] VITALS: BP 141/84; PULSE 85; RESP 23; O2SAT 98
[2022-06-18 23:22] VITALS: BP 141/84; PULSE 81; RESP 22; TEMP 36.7; O2SAT 99
[2022-06-18 23:30] VITALS: BP 141/84; PULSE 82; RESP 26; TEMP 36.7; O2SAT 99
[2022-06-19] VITALS (10 sets, daily range): BP systolic 123–156; BP diastolic 75–96; PULSE 62–85; RESP 16–19; TEMP 36.6–37.1; O2SAT 95–99; BMI 32.1
--- NOTE | 2022-06-19 00:05 | PCM.HP.STD ---
HPI - General General Date of Admission: 06/18/22 Date of Service: 06/19/22 Chief Complaint: Stroke HPI Narrative CB SPARKS, is a 81 M who presents to the emergency room with chief complaint of abnormal gait. Patient woke up at 1:00 AM yesterday morning and had a fall and had a mild head injury. Since that time he has had an ataxic gait. He went to see his primary care physician who subsequently sent the patient to the emergency room for further evaluation. He denies any chest pain, shortness of breath, fever or chills, no change in vision, no loss of taste or smell, no change in speech and no loss of motor function other than his ability to walk steadily. CT scan of the head reveals an acute infarct of the right perirolandic cortex and white matter consistent with the M3 branch. CT angiogram is significant for right internal carotid stenosis of 50 to 69% with a normal right common carotid artery. Laboratory studies are unremarkable. Patient denies any history of atrial fibrillation. He will be admitted to the PCU for management of acute stroke and an MRI of the head will be obtained in the morning. [facility], [facility] Medical History no medical history Home Medications NK 06/18/22 [History Last Taken Unknown] Allergy/AdvReac Type Severity Reaction Status Date / Time No Known Allergies Allergy Verified 06/18/22 20:52 Surgical History Hx of hand surgery Social History Smoking Status: Former smoker ROS Constitutional Constitutional: Denies chills, fever(s) or weakness Eyes Eyes: Denies blurry vision ENT HEENT: Denies abnormal hearing, dysphagia or loss taste/smell Cardiovascular Cardiovascular: Denies chest pain Respiratory/Chest Respiratory/Chest: Denies shortness of breath at rest Gastrointestinal Gastrointestinal: Denies abdominal pain, diarrhea, nausea or vomiting Genitourinary Genitourinary: Denies dysuria Musculoskeletal Musculoskeletal: Denies back pain Neurologic Neurologic: Reports abnormal gait and lack of coordination; Denies abnormal speech, confusion, dizziness or focal weakness Psychiatric Psychiatric: Denies anxiety Vital Signs Vital Signs Vital Signs: 06/18/22 20:42 06/18/22 22:12 06/18/22 22:12 Temperature 98.0 F Temperature Source Temporal Pulse Rate 76 78 Respiratory Rate 18 11 L Blood Pressure 160/68 H 150/77 H Blood Pressure Mean 98 101 Pulse Ox 100 98 98 Oxygen Delivery Method Room Air Room Air Room Air 06/18/22 23:04 06/18/22 23:22 06/18/22 23:30 Temperature 98.0 F 98.0 F Temperature Source Temporal Temporal Pulse Rate 85 81 82 Respiratory Rate 23 H 22 H 26 H Blood Pressure 141/84 H 141/84 H 141/84 H Blood Pressure Mean 103 103 103 Pulse Ox 98 99 99 Oxygen Delivery Method Room Air Room Air Room Air Weight Weight: 220 lb 14.451 oz Body Mass Index (BMI) 33.5 Physical Exam Const alert, oriented x3, no apparent distress and well nourished HEENT normocephalic and head/scalp atraumatic Eyes PERRL and EOMs intact bilaterally Neck no lymphadenopathy and supple Lymph Lymphatic: no lymphadenopathy noted Resp normal respiratory effort, normal air movement and clear to auscultation bilaterally Cardio regular rate, regular rhythm, S1 normal heart sound, S2 normal heart sound, no murmurs and no gallops GI normal to inspection, nondistended, normoactive bowel sounds Extremity normal capillary refill Skin General Skin Exam: no breakdown Neuro CN's II-XII intact bilaterally Neuro Narrative: reported ataxic gait Speech: speech normal Motor Exam: strength 5/5 throughout Psych thought process normal, cooperative and affect normal Appearance: appropriate Results Lab / Micro Data Result Diagrams: 06/18/22 20:50 06/18/22 20:50 Labs: Laboratory Results - last 24 hr 06/18/22 20:50: WBC 8.9, RBC 4.79, Hgb 14.5, Hct 44.2, MCV 92.3, MCH 30.3, MCHC 32.8, RDW Std Deviation 42.4, RDW Coeff of Bartolome 12.5, Plt Count 220, MPV 9.9, Immature Gran % (Auto) 0.400, Neut % (Auto) 70.6 H, Lymph % (Auto) 18.9 L, [place] % (Auto) 7.9, Eos % (Auto) 1.5, Baso % (Auto) 0.7, Absolute Neuts (auto) 6.3, Absolute Lymphs (auto) 1.68, Nucleated RBC % 0 06/18/22 20:50: PT 13.0, INR 1.0, APTT 29.2 06/18/22 20:50: Sodium 138, Potassium 3.7, Chloride 102, Carbon Dioxide 31.0, Anion Gap 5, BUN 19 H, Creatinine 1.03, Estim Creat Clear Calc 53.50, Est GFR (MDRD) Af Amer 89, Est GFR (MDRD) Non-Af 73, BUN/Creatinine Ratio 18.4, Glucose 99, Calcium 9.6, Troponin I High Sens 10 Rhythm Strip Rhythm Strip: Sinus Rhythm Rate: 70 Ectopy: PVC(s) Radiology Impression Brain CT 06/18/22 21:27 IMPRESSION: Acute infarct right perirolandic region MCA territory Electronically Signed: Alexis Zepeda MD at 22:15 EST Reading Location ID and State: [address] [place] [address] , Service support , ADDENDUM: 06/18/22 6235 IMPRESSION: 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 : The above Results were Read Back by Alexis Zepeda MD to Paul Davey MD, MD, and understanding confirmed on 06/18/2022 22:38:10 (ET). Electronically Signed: Alexis Zepeda MD at 22:15 EST Reading Location ID and State: [facility] , Service support , Head/Neck CTA 06/18/22 21:28 IMPRESSION: Acute or subacute infarct right perirolandic cortex and subcortical white matter. No major branch occlusion is identified however hyperdense MCA sign on the noncontrast CT may obscure a M3 branch occlusion. Moderate stenosis proximal right internal carotid artery. Multiple bilateral vertebral artery stenoses. 17 mm nodule right lobe of the thyroid. Recommend follow-up nonemergent thyroid ultrasound. N.B. : The above Results were Read Back by Alexis Zepeda MD to dr shameka MD, and understanding confirmed on 06/18/2022 22:39:00 (ET). Electronically Signed: Alexis Zepeda MD at 22:40 EST Reading Location ID and State: [address] [place] , Service support , ADDENDUM: 06/18/227 IMPRESSION: Acute or subacute infarct right perirolandic cortex and subcortical white matter. No major branch occlusion is identified however hyperdense MCA sign on the noncontrast CT may obscure a M3 branch occlusion. Moderate stenosis proximal right internal carotid artery. Multiple bilateral vertebral artery stenoses. 17 mm nodule right lobe of the thyroid. Recommend follow-up nonemergent thyroid ultrasound. N.B. : The above Results were Read Back by Alexis Zepeda MD to dr shameka MD, and understanding confirmed on 06/18/2022 22:39:00 (ET). Electronically Signed: Alexis Zepeda MD at 22:40 EST , Chest X-Ray 06/18/22 21:33 IMPRESSION: Normal x-ray examination of the chest. 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 Acute stroke of the perirolandic cortex on the right side causing ataxic gait?admit patient to progressive care unit, routine stroke protocol, neuro checks every 4 hours per routine protocol, order MRI of head noncontrast to be done in the a.m. initiate aspirin therapy, physical therapy to evaluate and treat the patient. Repeat BMP in the morning. 2. Obstructive sleep apnea?monitor overnight pulse ox May use home CPAP if available 3. DVT prophylaxis?low molecular weight heparin 4. Incidental CT finding of a 17 mm thyroid nodule that can be worked up as an outpatient, will however add a TSH on routine laboratory studies Charges/Coding Visit Charges Inpatient E&M: 99002 Init Hosp L3
--- NOTE | 2022-06-19 00:21 | MRI_ITS ---
We are attempting to reach an attending provider to discuss findings. An addendum with communication details will be sent when the communication is complete. EXAM: MR HEAD WITHOUT INTRAVENOUS CONTRAST CLINICAL INDICATION: Stroke TECHNIQUE: Multiplanar and multisequence MR images of the brain were obtained without intravenous contrast. This report was created using XGraph report generation technology. COMPARISON: CT head without contrast and CTA head with contrast 06/18/2022. FINDINGS: BRAIN AND EXTRA-AXIAL SPACES: Abnormal diffusion restriction along the cortices of the right supramarginal gyrus more than the right posterior insular lobe. This is also visible on the T2 FLAIR sequence and is consistent with subacute cortical gyral ischemic infarct. T2 FLAIR hyperintensity foci in the white matter of both cerebral hemispheres are chronic white matter ischemic changes. No intra- or extra-axial hemorrhage. No intracranial mass or mass effect. Posterior fossa structures are unremarkable. Ventricles are appropriate for age. No hydrocephalus. Basal cisterns are patent. SELLA: Unremarkable. Normal sella turcica, pituitary gland, infundibular stalk, optic chiasm and hypothalamus. AUDITORY SYSTEM: Unremarkable. The internal auditory canals are patent. BONES/JOINTS: Unremarkable. No discrete lytic or blastic abnormalities. SINUSES: Unremarkable as visualized. Clear. MASTOID AIR CELLS: Unremarkable as visualized. Clear. ORBITS: Unremarkable as visualized. Both globes, extraocular muscles, optic nerves and retrobulbar fat appear unremarkable. VASCULATURE: Unremarkable as visualized. Normal flow voids in the major intracranial circulation. MRI/Brain without Contrast IMPRESSION: Subacute cortical gyral ischemic infarct along the right supramarginal gyrus and a small portion of the right posterior insular cortex. Electronically Signed: Marcial Aleman MD at 10:48 EST ,
[2022-06-19 07:26] LABS: Anion Gap 4 (5-15); BUN 15 mg/dL (7-18); BUN/Creat Ratio 15.8 RATIO (10-20); Calcium,Total 9.7 mg/dL (8.5-10.1); Chloride 102 mmol/L (98-107); Cholesterol 141 mg/dL (200); Creatinine, Serum 0.95 mg/dL (0.70-1.30); EST Glomerular Filtration Rate 81 mL/min (>60); Est Glom Filt Rate - Afr Amer 98 mL/min (>60); Glucose 122 mg/dL (74-106); High Density Lipoprotein 40 mg/dL; Potassium 3.9 mmol/L (3.5-5.1); Sodium Level 135 mmol/L (136-145); Thyroid Stim Hormone (TSH) 0.92 uIU/mL (0.358-3.74); Triglycerides 102 mg/dL; Very Low Density Lipoprotein 20 mg/dL (5-40)
[2022-06-19] MEDS: Enoxaparin 40 MG/0.4 ML Syringe SC (08:11)
[2022-06-19] MEDS: Clopidogrel Bisulfate 75 MG Tablet PO (08:11)
[2022-06-19] MEDS: Aspirin 81 MG TAB.CHEW PO (08:11)
--- NOTE | 2022-06-19 11:20 | CASEMGMT ---
KUN EATON Face to Face with patient for initial transition planning/care coordination assessment. RN ANGELITO introduced self and role at [facility]. Patient lying in bed, alert and oriented. Patient willing to participate in assessment and is able to answer all questions appropriately. Care providers, pharmacy, and demographics verified. Patient wishes to discharge home, will monitor for HHC vs outpatient therapy, pending progress with therapy. Patient states he has no further needs or concerns at this time. CM to follow for discharge planning needs that may arise. 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 Patient states he is independent and able to ambulate stairs. Transportation: self, DME/HHC: Patient has shower chair, raised toilet, cane, walker, hip kit, grab bars, bipap, and pulse ox at home. Patient denies previous HHC or SNF. Disposition Plan: Patient to discharge home with family support and follow-up plans in place. Will monitor for HHC vs outpatient therapy at discharge. Rosa Isela PINON, RN, CM
--- NOTE | 2022-06-19 11:34 | CASEMGMT ---
MARILIA met with patient. SW explained reason for the PHQ due to him being positive for a stroke. Patient was agreeable to completing the PHQ9 and was able to read the questions and answer the questions. Patient voiced enjoyment of reading. Patient from [facility] and stated he went to [facility] and worked for [employer] for 40 years. Patient bright and receptive when talking about books he read and engaged in conversation easily. MARILIA updated Nicci, U MARILIA
[2022-06-19] MEDS: Acetaminophen 325 MG Tablet 650 MG PO (13:11)
--- NOTE | 2022-06-19 14:56 | CASEMGMT ---
Per therapy, pt would benefit from OP therapy at discharge. Pt provided with script for OP therapy and states will likely go to [facility]. Pt voices no further questions/concerns/needs. Guerline TRISTAN CM
--- NOTE | 2022-06-19 15:16 | DCINST_ITS ---
Discharge Instructions Diet Discharge Diet: No restrictions Activity Discharge Activity: Return to Normal Activity Weight Bearing Status: Full weight bearing Follow Up Care Test Results: Test results from this visit will be discussed in further detail at your follow- up appointment, if applicable. Discharge Plan Admission Admit Date/Time: 06/19/22 00:16 Primary Reason for Your Visit: acute stroke Attending Provider: Delmer Chavira Primary Care Provider: Manuel Panda Consulting Providers: Woo Dougherty Discharge Orders/Prescriptions Prescriptions: New aspirin 81 mg Tablet,Chewable 81 mg PO BREAKFAST Qty: 0 0RF atorvastatin 20 mg Tablet 20 mg PO QHS Qty: 30 0RF clopidogrel 75 mg Tablet 75 mg PO DAILY Qty: 30 0RF Referrals / Follow Up: Manuel Panda MD [Primary Care Provider] - Disposition Disposition (needs filled in before D/C Order can be placed): Home, Self Care
--- NOTE | 2022-06-19 15:20 | PCM.DC.SUM ---
Providers Date of Admission: 06/19/22 Date of Discharge: 06/19/22 Primary Care Physician: Dr. 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 Acute cortical gyral ischemic infarct along the right supramarginal gyrus and a small portion of the right posterior insular cortex Medications at Discharge Home Medications aspirin 81 mg chewable tablet 81 mg PO BREAKFAST #0 tabs 06/19/22 atorvastatin 20 mg tablet 20 mg PO QHS #30 tabs 06/19/22 clopidogrel 75 mg tablet 75 mg PO DAILY #30 tabs 06/19/22 Hospital Course Operations None Procedures None Summary of Care Provided Minutes Spent on Discharge: 31 Hospital Course: This 81-year-old white male was seen in the emergency room at [facility] with a chief complaint of loss of balance and difficulty walking. Patient also complained of a minimal headache. Patient's NIH score was 0 in the emergency room, since his last known well was last night before he went to bed, he was not a tPA candidate. The case was discussed with [facility] stroke neurologist, CTA of the head and neck and CT of the brain was performed which showed an acute infarct of the right perirolandic region MCA territory. Patient was admitted to PCU, he was placed on aspirin and a statin, MRI of the brain was obtained which confirmed that the patient had had an ischemic stroke. Patient was seen by PT OT and speech therapy. It was determined that the patient would not need outpatient physical therapy. On 06/19/2022, patient was seen and examined: On examination he appeared in good health and spirits. Vital signs as documented. Skin warm and dry and without overt rashes. Neck without JVD, neck was supple, trachea midline, thyroid was normal. Lungs clear bilaterally, normal air movement was noted. Heart exam notable for regular rhythm, normal sounds and absence of murmurs, rubs or gallops. Abdomen unremarkable and without evidence of organomegaly, masses, or abdominal aortic enlargement. Bowel sounds are present, abdomen is not distended. Extremities nonedematous, no cyanosis was noted, no clubbing was noted. Neuro: Cranial nerves II through XII are grossly intact, no focal motor deficits were noted, sensation to light touch and pinprick intact, motor exam 5/5 throughout. Psych: Patient is alert and oriented x3, he does not appear anxious or depressed, he does not appear agitated. On 06/19/2022, patient was seen and examined felt to be in stable condition for discharge home. Patient's PCP was contacted and made aware that the patient has 17 mm nodule in the right lobe of the thyroid, it may be followed up with nonemergent thyroid ultrasound. Weight / BMI Weight Weight: 95.9 kg Body Mass Index (BMI) 32.1 ABG / Lab / Microbiology Data Result Diagrams: 06/18/22 20:50 06/19/22 06:20 Laboratory: Laboratory Results - last 24 hr 06/18/22 20:50: WBC 8.9, RBC 4.79, Hgb 14.5, Hct 44.2, MCV 92.3, MCH 30.3, MCHC 32.8, RDW Std Deviation 42.4, RDW Coeff of Bartolome 12.5, Plt Count 220, MPV 9.9, Immature Gran % (Auto) 0.400, Neut % (Auto) 70.6 H, Lymph % (Auto) 18.9 L, [place] % (Auto) 7.9, Eos % (Auto) 1.5, Baso % (Auto) 0.7, Absolute Neuts (auto) 6.3, Absolute Lymphs (auto) 1.68, Nucleated RBC % 0 06/18/22 20:50: PT 13.0, INR 1.0, APTT 29.2 06/18/22 20:50: Sodium 138, Potassium 3.7, Chloride 102, Carbon Dioxide 31.0, Anion Gap 5, BUN 19 H, Creatinine 1.03, Estim Creat Clear Calc 53.50, Est GFR (MDRD) Af Amer 89, Est GFR (MDRD) Non-Af 73, BUN/Creatinine Ratio 18.4, Glucose 99, Calcium 9.6, Troponin I High Sens 10 06/19/22 06:20: Sodium 135 L, Potassium 3.9, Chloride 102, Carbon Dioxide 29.0, Anion Gap 4 L, BUN 15, Creatinine 0.95, Estim Creat Clear Calc 58.00, Est GFR (MDRD) Af Amer 98, Est GFR (MDRD) Non-Af 81, BUN/Creatinine Ratio 15.8, Glucose 122 H, Calcium 9.7, Triglycerides 102, Cholesterol 141, LDL Cholesterol 81, VLDL Cholesterol 20, HDL Cholesterol 40, TSH 0.92 Radiography Diagnostic Testing: Radiology Impression Brain CT 06/18/22 21:27 IMPRESSION: Acute infarct right perirolandic region MCA territory Electronically Signed: Alexis Zepeda MD at 22:15 EST Reading [facility] [place] , Service support , ADDENDUM: 06/18/222244 IMPRESSION: 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 : The above Results were Read Back by Alexis Zepeda MD to Paul Davey MD, MD, and understanding confirmed on 06/18/2022 22:38:10 (ET). Electronically Signed: Alexis Zepeda MD at 22:15 EST Reading Location ID and State: [place] , Service support , Head/Neck CTA 06/18/22 21:28 IMPRESSION: Acute or subacute infarct right perirolandic cortex and subcortical white matter. No major branch occlusion is identified however hyperdense MCA sign on the noncontrast CT may obscure a M3 branch occlusion. Moderate stenosis proximal right internal carotid artery. Multiple bilateral vertebral artery stenoses. 17 mm nodule right lobe of the thyroid. Recommend follow-up nonemergent thyroid ultrasound. N.B. : The above Results were Read Back by Alexis Zepeda MD to dr shameka MD, and understanding confirmed on 06/18/2022 22:39:00 (ET). Electronically Signed: Alexis Zepeda MD at 22:40 EST , ADDENDUM: 06/18/22 2247 IMPRESSION: Acute or subacute infarct right perirolandic cortex and subcortical white matter. No major branch occlusion is identified however hyperdense MCA sign on the noncontrast CT may obscure a M3 branch occlusion. Moderate stenosis proximal right internal carotid artery. Multiple bilateral vertebral artery stenoses. 17 mm nodule right lobe of the thyroid. Recommend follow-up nonemergent thyroid ultrasound. N.B. : The above Results were Read Back by Alexis Zepeda MD to dr shameka MD, and understanding confirmed on 06/18/2022 22:39:00 (ET). Electronically Signed: Alexis Zepeda MD at 22:40 EST , Chest X-Ray 06/18/22 21:33 IMPRESSION: Normal x-ray examination of the chest. Electronically Signed: Alexis Zepeda MD at 22:00 EST , Brain MRI 06/19/22 00:21 IMPRESSION: Subacute cortical gyral ischemic infarct along the right supramarginal gyrus and a small portion of the right posterior insular cortex. Electronically Signed: Marcial Aleman MD at 10:48 EST , ADDENDUM: 06/19/22 1117 IMPRESSION: Subacute cortical gyral ischemic infarct along the right supramarginal gyrus and a small portion of the right posterior insular cortex. N.B. : The above Results were Read Back by Marcial Aleman MD to Delmer Chavira MD, and understanding confirmed on 06/19/2022 11:11:06 (ET). Electronically Signed: Marcial Aleman MD at 10:48 EST , D/C Instructions Discharge Diet: No restrictions Weight Bearing Status: Full weight bearing Meaningful Use Info Meaningful Use Diagnoses (Choose all that apply): Ischemic CVA CVA Therapy Assessed for PT,OT and/or ST?: Yes Ischemic Stroke Antithrombotic order at d/c?: Yes Dx of Atrial fib/flutter?: No Anticoagulant at discharge?: Yes Statins at discharge?: Yes Primary Dx Acute Ischemic CVA?: Yes IV tPA ordered during stay?: No Reason IV t-PA not ordered: Procedure not Indicated Discharge Plan Admission Admit Date/Time: 06/19/22 00:16 Primary Reason for Your Visit: acute stroke Attending Provider: Delmer Chavira Primary Care Provider: Manuel Panda Consulting Providers: Woo Dougherty Discharge Orders/Prescriptions Prescriptions: New aspirin 81 mg Tablet,Chewable 81 mg PO BREAKFAST Qty: 0 0RF atorvastatin 20 mg Tablet 20 mg PO QHS Qty: 30 0RF clopidogrel 75 mg Tablet 75 mg PO DAILY Qty: 30 0RF Referrals / Follow Up: Manuel Panda MD [Primary Care Provider] - Disposition Disposition (needs filled in before D/C Order can be placed): Home, Self Care Charges/Coding Visit Charges Inpatient E&M: 66300 Disch Hosp
== END 2022-06-19 15:55 | disposition home or self-care (01) | DRG 66 ==
LOC: ED 23:25 → PCU 06-19 00:27
PROVIDERS: Admitting Provider Family Medicine; Emergency Provider Emergency Medicine; PCP Internal Medicine; Visit Provider Internal Medicine
DX: I63.511 Cerebral infarction due to unspecified occlusion or stenosis of right middle cerebral artery (principal); S09.90XA Unspecified injury of head, initial encounter; G47.33 Obstructive sleep apnea (adult) (pediatric); E04.1 Nontoxic single thyroid nodule; I65.21 Occlusion and stenosis of right carotid artery; R27.0 Ataxia, unspecified; R29.700 NIHSS score 0; R73.03 Prediabetes; Z87.891 Personal history of nicotine dependence
CPT/HCPCS: 36415; 70450; 70496; 70498; 70551; 71045; 80048; 80061; 84443; 84484; 85025; 85610; 85730; 93005; 94762; 97162; 97166; 99285; Q9967

== ENCOUNTER → 2022-07-31 | Outpatient (CLI) | payer MEDICARE, SELFPAY ==
--- NOTE | 2022-07-31 | ASPSI_PTH ---
PATIENT: CB SPARKS II LOC: [facility] U#:[id number] AGE/SX: 81/M ROOM: RE07/31/[address]: Dr. Apple Madsen MD : 1940 BED: DIS: 07/31/2022 SPEC #: [id number] RECD: 08/01/22 12:19 STATUS: BRYCE REQ #: [id number] JIGNESH: 07/31/22 00:[address]: Apple Madsen DEPT: CYTOLOGY RECD BY: Kasia Winchester ENTERED: 08/01/22 13:52 SP TYPE: MUNIR MONTENEGRO DR: Dr. Manuel Panda MD Tissues: A - Thyroid gland, NOS B - Thyroid gland, NOS Procedures: Surgery Specimen Level IV Cytospin Fluid Cytology Other HEADER OPERATION: Fine needle aspiration left thyroid PRE-OP DIAGNOSIS: Abnormal thyroid ultrasound TISSUE SUBMITTED: A ? FNA left thyroid nodule fluid, B - FNA left thyroid nodule x8 slides DIAGNOSIS CYTOLOGY A. Left thyroid nodule fluid, fine needle aspiration (cytospin and cell block): Negative for malignant cells. See comment. B. Left thyroid nodule, fine needle aspiration (smears): Consistent with benign follicular/colloid nodule ([place] Category II). Adequate for evaluation. See comment. SJ:rg 08/02/2022 COMMENT A. A few clusters of benign follicular cells noted. Correlation with clinical, radiologic findings and appropriate follow up are necessary. CYTOLOGY STUDY Slides are reviewed. CYTOLOGY GROSS A - Received is 3 ml of brown cloudy fluid labeled with the patient's name and and designated per the requisition as left thyroid. Submitted for cytology preparation including cell block. B - Received are eight smears labeled with the patient's name and designated per the requisition as left thyroid. Submitted for staining. / nik 08/01/2022 TC:5 CPT: 03674 x2, 21568
== END | disposition home or self-care (01) ==
LOC: LABSPEC 08-01 14:41
PROVIDERS: PCP Internal Medicine; Referring Provider Surgery; Visit Provider Surgery
DX: R94.6 Abnormal results of thyroid function studies (principal)
CPT/HCPCS: 88108; 88161; 88305

== ENCOUNTER → 2023-06-21 | Outpatient (CLI) | payer MEDICARE, SELFPAY ==
--- NOTE | 2023-06-21 12:58 | ECHOCS_ITS ---
Reason For Study: SABINO Procedure This was a 2D Doppler, Color Flow transthoracic echocardiogram. Technically difficult study. Unable to perform strain analysis due to needed use of Definity. Exam performed in department. Left Ventricle Normal LV size. Left ventricular systolic function is normal. The estimated ejection fraction is 60 %. Stage 1 diastolic dysfunction. No regional wall motion abnormalities noted. Right Ventricle Normal RV size. Normal systolic function. Atria Normal left atrium. Normal right atrium. Mitral Valve Normal mitral valve. Tricuspid Valve Normal tricuspid valve. Mild tricuspid valve insufficiency. Pulmonary artery systolic pressure is 27 mmHg. Aortic Valve Trisinus/trileaflet aortic valve. Mild focal aortic valve calcification. Pulmonic Valve Normal pulmonic valve. Mild (1+) pulmonic valve insufficiency. Great Vessels Normal aortic root. The pulmonary artery is normal size. Normal inferior vena cava. Pericardium/Pleural No pericardial effusion. Medication 22 gauge I.V. with prn adaptor inserted into right arm. Diluted definity 1.5ml given slow IV push to enhance endocardial definition. MMode/2D Measurements & Calculations LVIDd: 5.3 cm IVSd: 1.0 cm Ao root diam: 3.5 cm LVIDs: 3.6 cm LVPWd: 0.95 cm LA dimension: 3.5 cm FS: 31.4 % LAV(MOD-bp): 43.1 ml LA A4 area: 18.0 cm2 RA A4 area: 17.1 cm2 LAV(MOD-bp) Indexed: 20.2 ml/m2 LAV(MOD-sp2): 34.6 ml LAV(MOD-sp4): 45.2 ml TAPSE: 1.9 cm Time Measurements MV dec time: 0.32 sec Doppler Measurements & Calculations MV E max alejandro: 39.6 cm/sec Lat Peak E' Alejandro: 8.8 cm/sec Med Peak E' Alejandro: 6.4 cm/sec MV A max alejandro: 75.2 cm/sec E/E' lat: 4.5 E/E' med: 6.2 MV E/A: 0.53 MV V2 max: 92.8 cm/sec MV P1/2t max alejandro: 45.9 cm/sec Ao V2 max: 89.0 cm/sec MV max P.4 mmHg MV P1/2t: 124.8 msec Ao max P.2 mmHg MV V2 mean: 38.8 cm/sec MV dec slope: 107.7 cm/sec2 MV mean P.76 mmHg MVA(P1/2t): 1.8 cm2 MV V2 VTI: 24.0 cm LV V1 max: 65.1 cm/sec PA V2 max: 98.5 cm/sec TR max alejandro: 245.9 cm/sec LV V1 max P.7 mmHg PA V2 mean: 55.3 cm/sec TR max P.2 mmHg ECHO/Echo Complete W/ Contrast Interpretation Summary Normal LV size. Left ventricular systolic function is normal. The estimated ejection fraction is 60 %. Stage 1 diastolic dysfunction. Pulmonary artery systolic pressure is 27 mmHg. Contrast injection was performed. Ordering Physician: Warren Armstrong V Referring Physician: Manuel Panda M.D. Performed By: Dread Harman RCS
== END | disposition home or self-care (01) ==
PROVIDERS: PCP Internal Medicine; Referring Provider Internal Medicine Pulmonary Disease; Visit Provider Internal Medicine Pulmonary Disease
DX: G47.33 Obstructive sleep apnea (adult) (pediatric) (principal)
CPT/HCPCS: 93306; Q9957; A4216; C8929

== ENCOUNTER 2024-08-13 00:42 | Emergency (ER) | payer MEDICARE, SELFPAY ==
[2024-08-13 00:49] VITALS: BP 125/56; PULSE 116; RESP 18; TEMP 38.9; O2SAT 98; BMI 29.9
[2024-08-13 00:52] VITALS: BP 125/56; PULSE 115; RESP 22; TEMP 38.9; O2SAT 93
--- NOTE | 2024-08-13 01:01 | RAD_ITS ---
EXAM: XR CHEST, 1 VIEW CLINICAL INDICATION: fever TECHNIQUE: Frontal view of the chest. COMPARISON: 06/10/2022. FINDINGS: LUNGS AND PLEURAL SPACES: Unremarkable. No consolidation or edema. No pneumothorax. No effusion. HEART: Unremarkable. Cardiac silhouette not enlarged. MEDIASTINUM: Central airways and mediastinal contour are unremarkable. BONES/JOINTS: Unremarkable. No acute fracture. SOFT TISSUES: Unremarkable. RAD/Chest 1 View (Portable) IMPRESSION: No acute cardiopulmonary abnormality. Electronically Signed: Wesly Espinoza MD at 2:02 EST ,
[2024-08-13] MEDS: 0.9% Normal Saline (1000mL) 1,000 ML 999 ML IV (01:07)
[2024-08-13] MEDS: Acetaminophen 500 MG Tablet 1000 MG PO (01:09)
[2024-08-13 01:24] LABS: Absolute Lymphocyte Count 0.19 X10^3/uL (0.83-4.51); Absolute Neutrophil Count 7.2 X10^3/uL (2.0-7.7); Basophil# 0.02 X10^3/uL; Basophil% 0.3 % (0-1); Eosinophil# 0.02 X10^3/uL; Eosinophils% 0.3 % (0-5); Hematocrit 40.5 % (40-54); Hemoglobin 13.8 g/dL (13.0-16.5); Lymphocyte # 0.19 X10^3/ul (0.83-4.51); Lymphocyte % 2.5 % (19-41); Mean Corp Hgb Conc 34.1 g/dL (32-36); Mean Corpuscular Hgb 30.7 pg (27.0-32.0); Mean Platelet Vol. 10.8 fl (6.2-12.0); Monocyte# 0.06 X10^3/uL; Monocyte% 0.8 % (0-10); NRBC Flagged by Analyzer 0 % (0-5); Neutrophil # 7.17 X10^3/uL (2.7-7.7); Neutrophil % 95.3 % (47-70); POSITIVE COUNT YES; POSITIVE DIFFERENTIAL YES; RBC Distribution Width CV 13.2 % (11.6-14.6); RBC Distribution Width SD 43.5 fl (35.1-43.9); White Blood Count 7.5 K/mm3 (4.4-11.0)
[2024-08-13 01:25] LABS: Differential Indicated SCAN CRITERIA MET
[2024-08-13 01:28] LABS: Anion Gap 10 (5-15); BUN 23 mg/dL (7-18); BUN/Creat Ratio 26.3 RATIO (10-20); Calcium,Total 9.4 mg/dL (8.5-10.1); Chloride 108 mmol/L (98-107); Creatinine, Serum 0.87 mg/dL (0.70-1.30); EST Glomerular Filtration Rate 88 mL/min (>60); Est Glom Filt Rate - Afr Amer 107 mL/min (>60); Estimated Creatinine Clearance 73.09 ml/min; Glucose 142 mg/dL (74-106); Magnesium 1.7 mg/dL (1.6-2.6); Potassium 4.9 mmol/L (3.5-5.1); Sodium Level 140 mmol/L (136-145)
[2024-08-13 01:33] LABS: Mucous, Urine 0 SEEN /hpf (<or=2+); Squamous Epithelial Cells - UA 0 SEEN /hpf (0-5); White Blood Cells 0 SEEN /hpf (0-5)
[2024-08-13 01:34] LABS: Color, Urine Yellow (Yellow); Glucose, Dipstick Normal (Normal); Ketone-Dipstick 50 mg/dl (Negative); Leukocyte Esterase-Dipstick Negative /ul (Negative); Nitrite-Dipstick Negative (Negative); Occult Blood-Urine 250 /ul (Negative); Protein-Dipstick 15 mg/dl (Negative); Urine Bilirubin Dipstick Negative (Negative); Urine Clarity Clear (Clear); Urine Urobilinogen 1 mg/dl (Normal)
[2024-08-13 01:39] LABS: Lactic Acid 1.9 mmol/L (0.4-1.9)
[2024-08-13 01:43] LABS: Bacteria RARE /hpf (None Seen); Red Blood Cells-Urine 50-100 SEEN /hpf (0-5)
[2024-08-13 01:48] LABS: Differential Comment SCANNED; Platelet Estimate SLT DEC (ADEQ)
[2024-08-13 01:52] VITALS: BP 106/57; PULSE 106; RESP 22; TEMP 37.5; O2SAT 97
--- NOTE | 2024-08-13 01:57 | EDS_ITS ---
HPI History of Present Illness Chief Complaint: General Illness Informant: patient, family and EMS Narrative Narrative: Patient is a 83-year-old male with past medical history of CVA and obstructive sleep apnea. He states that this evening he had up to use the bathroom which she did so without any type of event but after doing so he began to experience weakness and shaking. He states that he has had mild cough associate with this as well. He denies any known sick contacts but states that he was around a large amount of people recently as his a few days ago. Based on the fact that he is alone and had increased weakness to the point where he felt like he could not stand and has a known history of CVA EMS was called and he was brought in for evaluation [facility] Medical History Acute stroke due to ischemia Home Medications ?Medication ?Instructions ?Recorded ?Last Taken ?Type aspirin 81 mg chewable tablet 81 mg PO BREAKFAST #0 tabs 06/19/22 Unknown Rx atorvastatin 20 mg tablet 20 mg PO QHS #30 tabs 06/19/22 Unknown Rx clopidogrel 75 mg tablet 75 mg PO DAILY #30 tabs 06/19/22 Unknown Rx benzonatate 100 mg capsule 200 mg (2 x 100 mg) PO TID PRN 02/21/23 Unknown Rx cough #30 caps lorazepam 0.5 mg tablet (Ativan) 0.5 mg PO TID PRN anxiety 7 days 08/13/24 Unknown Rx #21 tabs Allergy/AdvReac Type Severity Reaction Status Date / Time No Known Allergies Allergy Verified 08/13/24 00:54 Surgical History Hx of hand surgery Social History Smoking Status: Former smoker ROS ROS ED Constitutional Constitutional ED: Reports chills and fever(s) Eyes Eyes: Denies blurry vision or change in vision ENT ENT ED: Reports rhinorrhea; Denies sore throat Cardiovascular Cardiovascular: Reports racing heartbeat; Denies chest pain or palpitations Respiratory/Chest Respiratory/Chest: Reports cough; Denies dyspnea Gastrointestinal Gastrointestinal: Reports nausea and vomiting; Denies abdominal pain Genitourinary Genitourinary ED: Denies dysuria Musculoskeletal Musculoskeletal: Reports myalgias Neurologic Neurologic: Reports headache(s) and weakness Hematologic/Lymphatic Hematologic/Lymphatic: Reports easy bleeding and easy bruising EXAM Physical Exam Const Vital Signs: 08/13/24 00:49 08/13/24 00:52 08/13/24 01:52 Temperature 102.1 F H 102.1 F H 99.5 F H Temperature Source Oral Oral Oral Pulse Rate 116 H 115 H 106 H Respiratory Rate 18 22 H 22 H Blood Pressure 125/56 H 125/56 H 106/57 L Blood Pressure Mean 79 79 73 Pulse Ox 98 93 97 Oxygen Delivery Method Room Air Room Air Room Air 08/13/24 02:00 Temperature 99.5 F H Temperature Source Oral Pulse Rate 106 H Respiratory Rate 22 H Blood Pressure 106/57 L Blood Pressure Mean 73 Pulse Ox 97 Oxygen Delivery Method Room Air Positive well nourished and well developed General Appearance ED: well developed; Negative for pallor HEENT HEENT Narrative: Mucous membranes are slightly dry and tacky No tongue or lip swelling no oral lesions no airway edema or compromise; there is mild cobblestoning noted in the posterior pharynx consistent with sinus drainage No secondary findings to suggest infection Eyes PERRL and EOMs intact bilaterally General Eye ED: Negative for scleral icterus Neck supple Neck Narrative: No nuchal rigidity or meningeal signs noted Chest Wall palpation of chest normal Resp normal respiratory effort and clear to auscultation bilaterally Resp Narrative: Breath sounds are diminished throughout but overall clear to auscultation without signs of respiratory distress Cardio regular rhythm Rate: tachycardic and other Other Details: Tachycardic rate with regular rhythm Radial and carotid pulses are equal and symmetric GI normal to inspection, nondistended, normoactive bowel sounds, non-tender, non- distended and no masses GI Narrative: No voluntary guarding or rigidity or pulsatile mass Auscultation: normoactive bowel sounds Palpation: soft Extremity Extremity Narrative: Trace to +1 pitting edema to the bilateral lower extremities that is equal and symmetric per patient Otherwise no obvious bony deformity or joint effusion. Compartments are soft and compressible going against compartment syndrome. Neuro oriented x3, CN's II-XII intact bilaterally and no sensory deficits noted Neuro Narrative: GCS of 15 Cranial nerves II through XII are grossly intact without focal neurologic deficit. No pronator drift no dysmetria no truncal ataxia NIH stroke scale score of 0 Sensorium / Orientation: alert Psych mental status grossly normal Skin no rashes or lesions noted and no wounds General Skin Exam: Negative for jaundice or pallor MDM MDM MDM Narrative Medical decision making narrative: Patient arrived to the ER febrile and he was tachycardic secondary to this but otherwise was awake and alert and in no acute distress. His constellation of symptoms is most consistent with a viral infection such as COVID versus influenza versus RSV. However the fever could be related to a atypical pneumonia or UTI. Patient may also have potential sepsis. Secondary to his basic labs were obtained with urine sample and chest x-ray. Chest x-ray revealed no acute lung pathology. Patient's white count is normal there is no left shift or lactic acidosis going against a systemic infection/sepsis. He does not have acute kidney injury or electrolyte abnormality to suggest this as a cause of his weakness. Urine sample did not show any signs of infection either. The patient was given IV fluids and Tylenol and his vitals improved and he reported resolution of symptoms. He was able to ambulate with a steady gait. His exam and history do not indicate that his weakness was localized and therefore there was low concern for an acute CVA and I do not feel the need to activate a stroke alert or perform a head CT. At this time his history and exam is consistent with weakness from a viral source. He is not hypoxic he is not in respiratory distress he does not have LEONA or electrolyte abnormality there is no signs of acute blood loss anemia and with improvement of his fever his symptoms have improved as well and he is able to ambulate. Therefore do not feel there is need for further evaluation in the hospital and the patient is otherwise safe for discharge History & Record Review Discussion w/independent historian: Patient and Family Lab Data Attestation: I reviewed the patient's lab results. Labs: Laboratory Results - last 24 hr 08/13/24 08/13/24 01:05 01:24 WBC 7.5 RBC 4.50 L Hgb 13.8 Hct 40.5 MCV 90.0 MCH 30.7 MCHC 34.1 RDW Std Deviation 43.5 RDW Coeff of Bartolome 13.2 Plt Count TNP MPV 10.8 Immature Gran % (Auto) 0.800 Neut % (Auto) 95.3 H Lymph % (Auto) 2.5 L [place] % (Auto) 0.8 Eos % (Auto) 0.3 Baso % (Auto) 0.3 Absolute Neuts (auto) 7.2 Absolute Lymphs (auto) 0.19 L Nucleated RBC % 0 Differential Comment SCANNED Platelet Estimate SLT DEC Sodium 140 Potassium 4.9 Chloride 108 H Carbon Dioxide 23.0 Anion Gap 10 BUN 23 H Creatinine 0.87 Estim Creat Clear Calc 73.09 Est GFR (MDRD) Af Amer 107 Est GFR (MDRD) Non-Af 88 BUN/Creatinine Ratio 26.3 H Glucose 142 H Lactic Acid 1.9 Calcium 9.4 Magnesium 1.7 Urine Color Yellow Urine Clarity Clear Urine pH 7.0 Ur Specific [place] 1.010 Urine Protein 15 H Urine Glucose (UA) Normal Urine Ketones 50 H Urine Occult Blood 250 H Urine Nitrite Negative Urine Bilirubin Negative Urine Urobilinogen 1 H Ur Leukocyte Esterase Negative Urine RBC 50-100 SEEN Urine WBC 0 SEEN Ur Squamous Epith Cells 0 SEEN Urine Bacteria RARE Urine Mucus 0 SEEN Radiography Diagnostic Testing: Clinical Impression(s) from Imaging Studies Chest X-Ray 08/13/24 01:01 IMPRESSION: No acute cardiopulmonary abnormality. Electronically Signed: Wesly Espinoza MD at 2:02 EST , Chest x-ray as interpreted by the emergency medicine physician reveals no acute infiltrate pneumothorax or pleural effusion Discharge Plan Triage Chief Complaint: General Illness ED Provider: Jimy Vick Dx/Rx/DC Orders Clinical Impression: Viral syndrome, Pyrexia, SABINO (obstructive sleep apnea), History of CVA (cerebrovascular accident) Instructions: ED Fever Control (Adult), ED Viral Syndrome (Adult) Prescriptions: New lorazepam [Ativan] 0.5 mg tablet 0.5 mg PO TID PRN (Reason: anxiety) 7 Days Qty: 21 0RF No Action benzonatate 100 mg capsule 200 mg PO TID PRN (Reason: cough) Qty: 30 0RF aspirin 81 mg Tablet,Chewable 81 mg PO BREAKFAST Qty: 0 0RF atorvastatin 20 mg Tablet 20 mg PO QHS Qty: 30 0RF clopidogrel 75 mg Tablet 75 mg PO DAILY Qty: 30 0RF Primary Care Provider: Manuel Panda Referrals: Manuel Panda MD [Primary Care Provider] - Activity Restrictions/Additional Instructions: Your workup today does not show urinary tract infection or pneumonia but with your 102 fever you have a virus causing your weakness and shaking chills. Fever from this will last on average 3 days but can go as long as a week. Take 2 extra strength Tylenol up to 4 times a day to help control fever and keep yourself well-hydrated. Ativan was prescribed to help with anxiety. You may take up to 1 mg which is 2 pills 3 times a day to help with this but the least amount of medication is the best amount. If your symptoms worsen or the fever lasts over 7 days or you have any further concerns please return to the ER for repeat evaluation. Print Language: Malay Disposition Disposition: Home, Self Care
[2024-08-13 02:00] VITALS: BP 106/57; PULSE 106; RESP 22; TEMP 37.5; O2SAT 97
[2024-08-13 02:28] VITALS: BP 100/48; PULSE 107; RESP 18; TEMP 37.5; O2SAT 97
== END 2024-08-13 02:33 | disposition home or self-care (01) ==
PROVIDERS: Emergency Provider Emergency Medicine; PCP Internal Medicine; Visit Provider Emergency Medicine
DX: B34.9 Viral infection, unspecified (principal); G47.33 Obstructive sleep apnea (adult) (pediatric); Z86.73 Personal history of transient ischemic attack (TIA), and cerebral infarction without residual deficits; Z87.891 Personal history of nicotine dependence; R50.9 Fever, unspecified; R05.9 Cough, unspecified; R11.2 Nausea with vomiting, unspecified; M79.10 Myalgia, unspecified site; R51.9 Headache, unspecified; R53.1 Weakness; Z79.82 Long term (current) use of aspirin
CPT/HCPCS: 71045; 80048; 81001; 83605; 83735; 85025; 87631; 96360; 99285; A4216

== ENCOUNTER 2025-07-12 12:34 | Emergency (ER) | payer MEDICARE, SELFPAY ==
[2025-07-12 12:35] VITALS: BP 120/91; PULSE 93; RESP 16; TEMP 36.6; O2SAT 99
[2025-07-12 14:47] VITALS: BP 139/87; PULSE 79; RESP 18; O2SAT 99; BMI 31.7
--- NOTE | 2025-07-12 15:21 | EKG12_ITS ---
Test Reason : O Blood Pressure : */* mmHG Vent. Rate : 89 BPM Atrial Rate : 89 BPM P-R Int : 194 ms QRS Dur : 94 ms QT Int : 336 ms P-R-T Axes : 46 4 26 degrees QTcB Int : 408 ms Sinus rhythm with frequent Premature ventricular complexes Nonspecific ST abnormality Abnormal ECG Confirmed by Leopoldo Ordoñez ([id number]), television news video editor SURESH FREEMAN ([id number]) on 07/13/2025 11:00:04 AM Also confirmed by Leopoldo Ordoñez ([id number]), television news video editor SURESH FREEMAN ([id number]) on 07/14/2025 11:09:15 AM Referred By: Confirmed By: Leopoldo Ordoñez
--- NOTE | 2025-07-12 15:28 | EX.ED.DYSGE1 ---
HPI History of Present Illness Chief Complaint: Fall Narrative Narrative: Patient is a 84-year-old male with a past medical history of CVA/TIA who presented to the emergency department the chief complaint of generalized weakness. Patient states that he had a rough night and notes that he did not sleep well overall which is abnormal for him. He notes that he this morning he felt very weak he states that he was supposed to go to breakfast with a friend this morning and notes that he had significant difficulty getting up out of his chair. He states that he tried to stand up and was unable to do so he slid down the front of the sofa landing on his butt. He states he did not pass out he did not hit his head he remembers the entire event. He states that he had to wait 10 minutes before his neighbor it would come and help him off the ground. He states that a few hours later he tried to stand up again and noted that he was extremely weak therefore he came here to be further evaluated. [facility] Medical History Acute stroke due to ischemia Home Medications ?Medication ?Instructions ?Recorded ?Last Taken ?Type aspirin 81 mg chewable tablet 81 mg PO BREAKFAST #0 tabs 06/19/22 07/11/25 Rx atorvastatin 20 mg tablet 20 mg PO QHS #30 tabs 06/19/22 07/11/25 Rx berberine chloride 500 mg capsule 500 mg PO DAILY 07/12/25 07/12/25 History cephalexin 500 mg capsule 500 mg PO BID 5 days #10 caps 07/12/25 Unknown Rx Allergy/AdvReac Type Severity Reaction Status Date / Time No Known Allergies Allergy Verified 07/12/25 12:37 Surgical History Hx of hand surgery Social History Smoking Status: Former smoker ROS ROS ED ROS Narrative Constitutional: Denies any fevers, chills, headache Eyes: Denies double vision Cardiovascular: Denies chest pain Respiratory: Denies shortness of breath Abdomen: Denies abdominal pain nausea vomit diarrhea denies black stools or blood in the stool : States that he has been having urge incontinence for the last several weeks to months now this is unchanged denies any painful urination denies any blood in his urine Neurological: Denies any numbness or tingling complains of generalized weakness as noted above Musculoskeletal: Denies back pain Skin: Denies any rashes or lesions EXAM Physical Exam Narrative Exam Narrative: General: Patient was lying in bed rest comfortably did not appear to be acute Head: Atraumatic, normocephalic Eyes: PERRL bilaterally, EOMI bilaterally, no conjunctival injection noted Neck: Soft, supple, trachea midline Cardiovascular: Regular rate and rhythm Respiratory: Clear to auscultation bilaterally Abdomen: Soft, nondistended, no tenderness to palpation Extremities: +4/5 strength noted in the bilateral upper and lower extremities, no pedal edema on exam Neurological: Patient is following commands knew that he was at [facility] the year is 2024 sensation grossly intact NIH of 0 GCS 15. Patient completed finger-nose testing bilaterally without difficulty Skin: Warm, dry, tact no rashes lesions noted Const Vital Signs: 07/12/25 12:35 07/12/25 14:47 07/12/25 17:08 Temperature 97.9 F Temperature Source Oral Pulse Rate 93 79 88 Respiratory Rate 16 18 16 Blood Pressure 120/91 H 139/87 H 122/64 H Blood Pressure Mean 100 104 83 Pulse Ox 99 99 100 Oxygen Delivery Method Room Air Room Air Room Air MDM MDM MDM Narrative Medical decision making narrative: Patient is a 84-year-old male who presented to the emergency department the chief complaint of generalized weakness. On the differential diagnose includes but not limited to intracranial mass, electrolyte abnormality, hypoglycemia, UTI. Once the workup is obtained reviewed he will be reevaluated. Patient will given IV fluids, Tylenol and Reglan Patient's CBC reviewed and showed no evidence leukocytosis white blood count was 6.1, he was 13.3, platelet count was noted be 137. Patient sodium was 137, potassium normal 4.1, creatinine normal at 0.93. Patient AST and ALT were 34 and 27 respectively. Patient lipase was noted to be normal at 24, urinalysis showed negative nitrites no leukocyte esterase, 5-10 white cells and 3+ bacteria therefore patient was given Rocephin he will be given a prescription for Keflex. Urine was sent for culture.Patient CT head showed no acute intracranial pathology stable appearing chronic right frontoparietal lobe infarct. Patient's EKG reviewed and showed sinus rhythm with PVCs noted with a rate of 89 bpm with a MI interval 194 multiple areas of artifact noted. Patient ambulated well here in the emergency department was advised to follow-up his doctor and return to worsening symptoms or concerns. He would like to go home Roland members are agreeable with this plan. Family members noted that they will be staying with him for the next few days as well. All question concerns answered is discharged home in stable condition. Lab Data Labs: Laboratory Results - last 24 hr 07/12/25 07/12/25 15:40 16:24 WBC 6.1 RBC 4.39 L Hgb 13.3 Hct 40.4 MCV 92.0 MCH 30.3 MCHC 32.9 RDW Std Deviation 43.0 RDW Coeff of Bartolome 12.6 Plt Count 137 L MPV 10.0 Immature Gran % (Auto) 0.300 Neut % (Auto) 84.6 H Lymph % (Auto) 5.9 L [place] % (Auto) 8.7 Eos % (Auto) 0.2 Baso % (Auto) 0.3 Absolute Neuts (auto) 5.2 Absolute Lymphs (auto) 0.36 L Nucleated RBC % 0 Sodium 137 Potassium 4.1 Chloride 101 Carbon Dioxide 25.1 Anion Gap 11 BUN 16 Creatinine 0.93 Estim Creat Clear Calc 68.96 Est GFR (MDRD) Non-Af 81 BUN/Creatinine Ratio 16.7 Glucose 152 H Calcium 9.5 Total Bilirubin 0.72 AST 34 ALT 27 Alkaline Phosphatase 65 Total Protein 6.5 Albumin 4.2 Globulin 2.3 Albumin/Globulin Ratio 1.8 Lipase 24 Urine Color Yellow Urine Clarity Clear Urine pH 5.0 Ur Specific [place] 1.020 Urine Protein 30 H Urine Glucose (UA) 100 H Urine Ketones Negative Urine Occult Blood 250 H Urine Nitrite Negative Urine Bilirubin Negative Urine Urobilinogen Normal Ur Leukocyte Esterase Negative Urine RBC 25-50 SEEN Urine WBC 5-10 SEEN Ur Squamous Epith Cells 0 SEEN Urine Bacteria 3+ Urine Mucus RARE Radiography Diagnostic Testing: Clinical Impression(s) from Imaging Studies Brain CT 07/12/25 16:05 IMPRESSION: No evidence of acute intracranial pathology. Stable appearing chronic right frontoparietal lobe infarct. Reading Location: [id number] Discharge Plan Triage Chief Complaint: Fall ED Provider: Jean Emerson Dx/Rx/DC Orders Clinical Impression: Generalized weakness, SABINO (obstructive sleep apnea), Urinary tract infection Prescriptions: New cephalexin 500 mg capsule 500 mg PO BID 5 Days Qty: 10 0RF No Action aspirin 81 mg Tablet,Chewable 81 mg PO BREAKFAST Qty: 0 0RF atorvastatin 20 mg Tablet 20 mg PO QHS Qty: 30 0RF berberine chloride 500 mg capsule 500 mg PO DAILY Primary Care Provider: Manuel Panda Referrals: Manuel Panda MD [Primary Care Provider, Internal Medicine] Activity Restrictions/Additional Instructions: Take antibiotics as prescribed. Your CT of your head did not show acute findings your blood work did not show any acute findings either. Follow-up on urine culture with your doctor. Return with worsening symptoms or other concerns Print Language: Albanian Disposition Disposition: Home, Self Care
[2025-07-12] MEDS: 0.9% Normal Saline (1000mL) 1,000 ML 999 ML IV (15:45)
[2025-07-12 15:53] LABS: Hematocrit 40.4 % (40-54); Hemoglobin 13.3 g/dL (13.0-16.5); Immature Granulocytes Count 0.020 X10^3/uL (0.0-0.0); Mean Corp Hgb Conc 32.9 g/dL (32-36); Mean Corpuscular Volume 92.0 fL (80-94); Mean Platelet Vol. 10.0 fl (6.2-12.0); NRBC Flagged by Analyzer 0 % (0-5); POSITIVE DIFFERENTIAL YES; Platelet Count 137 K/mm3 (150-450); RBC Distribution Width CV 12.6 % (11.6-14.6); RBC Distribution Width SD 43.0 fl (35.1-43.9); Red Blood Count 4.39 M/mm3 (4.6-6.2); White Blood Count 6.1 K/mm3 (4.4-11.0)
--- NOTE | 2025-07-12 16:05 | CT_ITS ---
PROCEDURE: CT BRAIN/HEAD WITHOUT CONTRAST 07/12/2025 REASON FOR EXAM: HEADACHE, WEAKNESS TECHNIQUE: Procedure Code: CTBR Modality: CT Procedure: BRAIN/HEAD WITHOUT CONTRAST Coronal and Sagittal reconstruction series were provided. One or more dose reduction techniques were used (e.g., Automated exposure control, adjustment of the mA and/or kV according to patient size, use of iterative reconstruction technique. RADIATION DOSE SUMMARY: CTDlvol: 44.99 mGy DLP: 880.47 mGycm COMPARISON: CT head/angiography 06/18/2022. MRI 06/19/2022. FINDINGS: No acute intracranial hemorrhage, extra-axial collection, mass effect or evidence of acute territorial infarct. 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 Mild chronic microangiopathic changes elsewhere. Atherosclerotic vascular calcifications. Absent [place] ocular lenses. Intact skull base and calvarium. Clear paranasal sinuses and mastoid air cells. CT/Brain/Head without Contrast IMPRESSION: No evidence of acute intracranial pathology. Stable appearing chronic right frontoparietal lobe infarct. Reading Location: [id number]
[2025-07-12 16:28] LABS: AST(SGOT) 34 U/L (<=37); Alanine Aminotransfer ALT/SGPT 27 U/L (<=46); Albumin, Serum 4.2 g/dL (3.4-4.8); Alkaline Phosphatase 65 U/L (40-129); Anion Gap 11 (7-18); BUN 16 mg/dL (4-19); BUN/Creat Ratio 16.7 RATIO (10-20); Calcium,Total 9.5 mg/dL (7.6-11.0); Carbon Dioxide 25.1 mmol/L (20.0-29.0); Chloride 101 mmol/L (96-106); Estimated Creatinine Clearance 68.96 ml/min (50-250); Globulin 2.3 g/dL (2.2-4.2); Glucose 152 mg/dL (70-99); Lipase 24 U/L (13-75); Potassium 4.1 mmol/L (3.5-5.1)
[2025-07-12 16:33] LABS: Squamous Epithelial Cells - UA 0 SEEN /hpf (0-5)
[2025-07-12 16:59] LABS: Color, Urine Yellow (Yellow); Glucose, Dipstick 100 mg/dl (Normal); Ketone-Dipstick Negative (Negative); Leukocyte Esterase-Dipstick Negative /ul (Negative); Nitrite-Dipstick Negative (Negative); Occult Blood-Urine 250 /ul (Negative); Protein-Dipstick 30 mg/dl (Negative); Specific Gravity, Urine 1.020 (1.002-1.030); Urine Bilirubin Dipstick Negative (Negative)
[2025-07-12 17:08] VITALS: BP 122/64; PULSE 88; RESP 16; O2SAT 100
[2025-07-12 17:34] LABS: Mucous, Urine RARE /hpf (<or=2+); Red Blood Cells-Urine 25-50 SEEN /hpf (0-5)
== END 2025-07-12 18:49 | disposition home or self-care (01) ==
LOC: ED 18:37
PROVIDERS: Emergency Provider Emergency Medicine; PCP Internal Medicine; Visit Provider Emergency Medicine
DX: R53.1 Weakness (principal); N39.0 Urinary tract infection, site not specified; G47.33 Obstructive sleep apnea (adult) (pediatric); Z87.891 Personal history of nicotine dependence; I49.3 Ventricular premature depolarization; Z86.73 Personal history of transient ischemic attack (TIA), and cerebral infarction without residual deficits
CPT/HCPCS: 70450; 80053; 81001; 83690; 85025; 87086; 93005; 96361; 96365; 96375; 99283; A4216